=== PATIENT | male | born 1950 | race Caucasian/White ===

== ENCOUNTER 2016-10-04 10:39 | Inpatient (IN) | payer MEDICARE, MEDICAID ==
[~2016-10-04] VITALS: Ht 175.3 cm; Wt 70.2 kg
[~2016-10-04 10:39] MED LIST: ADVAIR DIS1 PUFF/DO1 IH; AFRIN-DPS15 ML NS; ASA CHILDREN'S81 MG PO; ATIVAN-DPS0.5 MG PO; ATROVENT HFA12.9 GM IH; BENADRYL-DPS25 MG PO; CARVEDILOL25 MG PO; CLARITIN DPS10 MG PO; COREG DPS12.5 MG PO; COREG DPS3.125 MG PO; DELTASONE DPS10 MG PO; DULERA 200/58.8 GM IH; DUONEB DPS3 ML IH; FENOFIBRATE48 MG PO; GLUCAGON1 MG/ML IM; GLUCAGON1 MG/ML SQ; GLUTOSE 1537.5 GM PO; HUMALOG100 UNIT/1 SQ; HYDROCODONE 5MG/5 MG PO; IMDUR DPS30 MG PO; KAYEXALATE7.5 GM/30 PO; KEFLEX-DPS500 MG PO; KLONOPIN DPS0.5 MG PO; KLONOPIN DPS1 MG PO; LASIX DPS40 MG PO; MAALOX DPS30 ML PO; METAMUCIL SF P3.4 GM PO; MINOCIN DPS100 MG PO; MS CONTIN DPS15 MG PO; MULTIPLE VITAM1 EACH PO; NITROSTAT0.4 MG SL; NORCO 5-325 TA1 EACH PO; NOVOLIN-N,100 UNITS/ SQ; NOVOLOG100 UNIT/2 SQ; OXY IR DPS5 MG PO; PEPCID40 MG PO; PERIDEX15 ML PO; PLAVIX75 MG PO; PRO-AMATINE2.5 MG PO; PROAIR HFA8.5 GM IH; PROTONIX40 MG PO; RENAGEL800 MG PO; RENVELA800 MG PO; REQUIP0.25 MG PO; SALINE NASAL SP88 ML NS; SENOKOT DPS8.6 MG PO; SENOKOT S1 TAB PO; SINEMET 25-1001 EACH PO; SINEMET 25/1001 TAB PO; SINEMET CR 25-11 TAB PO; SPIRIVA18 MCG IH; SURFAK DPS240 MG PO; TEFLARO600 MG IV; THERA1 EACH PO; THERAPEUTIC MUL1 TAB PO; TYLENOL DPS325 MG PO; TYLENOL-DPS650 MG PR; XYLOCAINE 1% SQ; ZOFRAN4 MG PO; ZOLOFT DPS100 MG PO
--- NOTE | 2016-10-07 18:31 | CO ---
ADMIT: 10/04/2016 RM/LOC: 521 [facility] MR#: [id number] [facility]#: [id number] 2620 [facility] [address] [place] [id number] [place] [address] Consultation SEX: M AGE: 65 : 1950 DATE OF CONSULTATION: 10/05/2016 ATTENDING PHYSICIAN: David Gonsalez CONSULTING PHYSICIAN: Adele Shirley MD REASON FOR CONSULTATION: Rash on legs. HISTORY OF PRESENT ILLNESS: Mr. Villagomez is a very pleasant 65-year-old white male with very complicated medical history including cirrhosis; end-stage renal disease, presently on hemodialysis; history of treated hepatitis C; history of a lymphoproliferative disorder and a failed renal transplant, who stated that he started noticing rash on his legs on Tuesday. His legs were also very tender. He denies any trauma to the legs and has not been applying anything to his legs. Over the next several days, he said the rash progressed and at this point, he does stated it is painful. He denies any pruritus associated with it. PAST MEDICAL HISTORY: See above. Also includes; 1. Dyslipidemia. 2. Coronary artery disease. 3. History of myocardial infarction. 4. History of chronic pain. 5. History of gastroesophageal reflux disease. 6. Restless legs syndrome. 7. History of COPD. 8. Diabetes mellitus. SOCIAL HISTORY: The patient lives with his and does hemodialysis daily. He does have a history of tobacco abuse, but quit many years ago according to him. FAMILY HISTORY: No family history of any skin diseases or renal diseases. MEDICATIONS: 1. Vancomycin. 2. Spiriva. 3. NovoLog sliding scale. 4. Carbidopa/levodopa. 5. Clonazepam p.r.n. 6. Senna. 7. Sertraline. 8. Ropinirole. 9. Morphine sulfate p.r.n. at bedtime. 10.Claritin 10 mg. 11.Protonix. 12.Deltasone 10 mg. 13.Zofran p.r.n. 14.Lortab p.r.n. ADMIT: 10/04/2016 RM/LOC: 521 [facility] MR#: [id number] [address] [address] [place] [address] Consultation SEX: M AGE: 65 : 1950 ALLERGIES: INCLUDE PHENOTHIAZINE, PROCHLORPERAZINE, CODEINE, LASIX, AND CIPROFLOXACIN. PHYSICAL EXAMINATION: GENERAL: Ursula is a pleasant thin white male, in no acute distress. EXTREMITIES: On the lower legs from about the mid thigh distally, there is pretty significant erythema and violaceous patches that are non-blanchable, but slightly blanchable. There is reticular pattern. The patient does report some tenderness on palpation. There is no eruption on the soles of the feet nor eruption is noted on the rest of the body. There is no breakdown of the epidermis at this time. No excoriations were noted. LABORATORY DATA: White blood cell count 4.3, platelet count 105, calcium 8.5, and creatinine 2.5. Arterial Doppler did show an atherosclerotic disease and venous Doppler was negative for a deep venous thrombosis. ASSESSMENT: I am not sure exactly what is causing Mr. Villagomez's lower extremity bilateral eruption. I think diagnoses to consider include a cellulitis versus an acute dermatitis with a lot of extravasation of red blood cells accounting for the non-blanchable component versus possibly early calciphylaxis or vasculitis. PLAN: 1. I discussed this with the patient, recommended a biopsy to hopefully help figure out what is causing this eruption. The patient agreed. Risks including bleeding, infection, allergy to the anesthetic, pain, and also non-healing ulcer in the lower leg were discussed with the patient. After both verbal and written consent were obtained, his area on the right thigh was cleaned with alcohol and 1 mL of 1% lidocaine with epinephrine was used to achieve local anesthesia. A 5 mm tubular blade was then used to remove a small piece of tissue and 5-0 nylon interrupted sutures were used to reapproximate the skin edges. Bandage was placed and wound care orders were given. Hopefully, the biopsy result will be available tomorrow or possibly on . 2. I think in the meantime, I am going to recommend triamcinolone 0.1% cream to be applied to the rash for the next week. If you have any questions, please do not hesitate to call. I appreciate you allowing me to help in the care of this patient. Adele Shirley MD/ trent JOB #: [id number] CC: David Gonsalez, Attending Physician David Gonsalez, Family Physician
--- NOTE | 2016-10-11 07:47 | HP ---
ADMIT: 10/04/2016 RM/LOC: 521 [facility] MR#: [id number] 2620 [facility] [address] [phone] [place] [address] History and Physical SEX: M AGE: 65 : 1950 REASON FOR HOSPITALIZATION: Cellulitis, vasculitic dermatitis. HISTORY OF PRESENT ILLNESS: This is a 65-year-old male patient, who last Zeus noticed some small petechial areas on his thighs. Over the ensuing 24 hours, this coalesced into a very deep dark purple and erythematous discoloration with pain and discomfort. This extended from the mid thigh down into the mid medial calf region. He presented to the emergency room and is now admitted for further evaluation and care. PAST MEDICAL HISTORY: The patient does have a significant history of end- stage renal disease, on hemodialysis with history of failed renal transplant. He also has a history of hepatitis C and lymphoproliferative disorder. This being said, these issues, I think, play a role in his current possible vasculitic dermatitis and/or the possibility of a mixed cryoglobulinemia syndrome. He also has a medical history of anxiety, chronic pain, reflux, restless legs syndrome, COPD, and recent hospitalization with pneumonia. He is a diabetic, has history of chronic liver disease and ascites. He has been treated for hep C with both ribavirin and then followup clearing therapy was performed with [facility] through the [facility]. He also has a history of dyslipidemia, coronary artery disease, [place], and PCI. SOCIAL HISTORY: He has been living with his at a local [facility], receives outpatient hemodialysis. He does not currently smoke or use alcohol. FAMILY HISTORY: Not contribute. MEDICATIONS: His meds are multiple, but I see nothing in the recent past has been added which would cause an allergic medication vasculitis. He has been started on Merrem and vancomycin since his admission. REVIEW OF SYSTEMS: The remainder of his review of systems is negative. He denies any current chest pain, shortness of breath, nausea, and vomiting. He does have the discomfort and pain in the areas of the rash, bilateral inner ADMIT: 10/04/2016 RM/LOC: 521 [facility] MR#: [id number] [address] [address] [place] [address] History and Physical SEX: M AGE: 65 : 1950 thighs. LABORATORY DATA: Reviewed. Arterial venous Doppler evaluation is negative. 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 PLAN: He is admitted. We will cover him with antibiotic and culture him. Ask Dr. Hall to see for hemodialysis management. I think we should consider a Dermatology consultation for biopsy, and in the meantime, I am going to check a viral load for hep C, acute phase react and eval with sedimentation rate, rheumatoid factor, serum protein electrophoresis, and serum cryoglobulin analysis. David Gonsalez DO/ modl JOB #: [id number] CC: David Gonsalez, Attending Physician David Gonsalez, Family Physician
--- NOTE | 2016-10-22 23:45 | ER ---
ADMIT: 10/04/2016 RM/LOC: ER [facility] MR#: [id number] [address] [address] [place] [address] Emergency Room Report SEX: M AGE: 65 : 1950 DATE: 10/04/2016 CHIEF COMPLAINT: Bilateral swollen, erythemic, red legs. HISTORY OF PRESENT ILLNESS: This is a 65-year-old who said these symptoms started developing on Tuesday. Today, the pain became so bad that [place] brought him into the emergency room. COURSE IN EMERGENCY ROOM: CMP is normal except for potassium at 3.6, creatinine 2.5, albumin 2.6, alkaline phos is 157, ALT is low at 10, GFR is 26. CRP is 3.88. PT/INR normal. CBC is normal except for white count of 4.3, hemoglobin 11.1, and platelets 105. Sedimentation rate is 37. Lactic acid is 1.4. Procalcitonin is pending. Blood cultures x2 have been drawn. Vancomycin with pharmacy to dose will be started down here in the emergency room. I did speak with Dr. Gonsalez regarding this patient at 1300 hours, he will admit the patient. CLINICAL IMPRESSION: Cellulitis to bilateral lower legs with petechiae. DISPOSITION: He is stable at admit. MANSI Krishnan / Eleuterio Mendoza MD / modl JOB #: [id number] CC: Eleuterio Mendoza MD, Attending Physician David Gonsalez DO, Family Physician
--- NOTE | 2016-11-24 08:23 | DS ---
ADMIT: 10/04/2016 RM/LOC: 521 [facility] MR#: [id number] [address] [address] [place]OME[place] [address] Discharge Summary SEX: M AGE: 65 : 1950 ADMISSION DATE: 10/04/2016 DISCHARGE DATE: 10/08/2016 REASON FOR HOSPITALIZATION: Vasculitic dermatitis, cellulitis. HISTORY OF PRESENT ILLNESS: A 65-year-old male patient, who presented with a fairly rapid onset small petechial areas in his thigh, which over the ensuing 24 hours, coalesced into a very deep dark purple erythematous discolored, painful rash over the medial thigh. He does have a significant medical history of hep C, lymphoproliferative disorder, end-stage renal disease, status post transplant on hemodialysis, mixed cryoglobulinemia, recent pneumonia, diabetes, chronic liver disease, ascites hep. C, status post Harvoni therapy. HOSPITAL COURSE: He was admitted to the hospital started on IV antibiotic therapy. He was given pain management. Dr. Hall was asked to consult and manage his end-stage renal disease, and ongoing dialysis orders. He was cultured and ultimately I asked Dermatology to see the patient to perform biopsy. We also performed serum protein electrophoresis, serum cryoglobulin evaluation, and quantitative viral hep C studies. On 10/05, biopsy was performed, he was noted to have a positive rheumatoid arthritis factor. The Dermatology recommendations were topical steroids and to arrange for a followup in their office after dismissal approximately 1 week. 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 His blood cultures were negative. 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 Gonzales on a routine basis. We did dismiss him on the with plans to return to see me in 2 weeks. Return to the Dermatology Clinic in 1 week and plan to keep his followup Hematology Oncology Clinic appointment. He was to return to outpatient hemodialysis with routine follow up Dr. Hall. MEDICATIONS: His medications are multiple and listed in the dismissal checklist. For specifics of medication and dosing, please refer to that list. David Gonsalez DO/ trent JOB #: [id number] CC: Dvaid Gonsalez DO, Attending Physician David Gonsalez DO, Family Physician
[2017-01-27] MEDS ORDERED: DELTASONE DPS10 MG PO (06:31)
[2017-01-27] MEDS ORDERED: CLARITIN DPS10 MG PO (06:31)
[2017-01-27] MEDS ORDERED: METAMUCIL SF P3.4 GM PO (06:32)
[2017-01-27] MEDS ORDERED: KLONOPIN DPS0.5 MG PO ×2 (06:32)
[2017-01-27] MEDS ORDERED: MIRALAX PACKET17 GM PO (06:32)
[2017-01-27] MEDS ORDERED: MS CONTIN DPS15 MG PO ×2 (06:33)
[2017-01-27] MEDS ORDERED: PROTONIX40 MG PO (06:33)
[2017-01-27] MEDS ORDERED: PRO-AMATINE2.5 MG PO (06:33)
[2017-01-27] MEDS ORDERED: SENOKOT DPS8.6 MG PO (06:34)
[2017-01-27] MEDS ORDERED: SINEMET 25-1001 EACH PO (06:34)
[2017-01-27] MEDS ORDERED: REQUIP DPS0.5 MG PO (06:34)
[2017-01-27] MEDS ORDERED: DUONEB DPS3 ML IH (06:35)
[2017-01-27] MEDS ORDERED: NORMAL SALINE FL5 ML IV (06:35)
[2017-01-27] MEDS ORDERED: THERAPEUTIC MUL1 TAB PO (06:35)
[2017-01-27] MEDS ORDERED: SINEMET 25/1001 TAB PO (06:35)
[2017-01-27] MEDS ORDERED: COLACE-DPS100 MG PO (06:36)
[2017-01-27] MEDS ORDERED: HYDROCODON-ACE1 EAC4 PO (06:36)
[2017-01-27] MEDS ORDERED: ZOSYN 3.3753.375 GM IV (06:36)
[2017-01-27] MEDS ORDERED: TYLENOL DPS325 MG PO (06:37)
[2017-01-27] MEDS ORDERED: OCEAN NASAL MIS45 ML NS (06:37)
[2017-01-27] MEDS ORDERED: ZOFRAN4 MG PO (06:37)
[2017-05-03] MEDS ORDERED: BREO ELLIP1 PUFF/DOS IH (11:52)
[2017-05-03] MEDS ORDERED: NIZORAL DPS30 GM TP (11:53)
[2017-05-03] MEDS ORDERED: VIBRAMYCIN-DPS100 M2 PO (11:53)
[2017-05-03] MEDS ORDERED: ATIVAN-DPS0.5 MG PO (11:54)
[2017-05-03] MEDS ORDERED: NITROSTAT0.4 MG SL (11:54)
[2017-05-03] MEDS ORDERED: SERTRALINE HCL50 MG PO (11:56)
[2017-05-03] MEDS ORDERED: KLONOPIN DPS0.5 MG PO (11:57)
[2017-05-03] MEDS ORDERED: RENAGEL800 MG PO ×2 (11:57→13:21)
[2017-05-03] MEDS ORDERED: GLUTOSE 1537.5 GM PO (11:57)
[2017-05-03] MEDS ORDERED: GLUCAGON HCL1 MG IM (11:58)
[2017-05-03] MEDS ORDERED: EUCERIN CREME57 GM TP (13:14)
[2017-05-03] MEDS ORDERED: MEGACE DPS800 MG/20 PO (13:19)
[2017-05-03] MEDS ORDERED: MUCINEX600 MG PO (13:20)
[2017-05-03] MEDS ORDERED: ZOLOFT50 MG PO (13:22)
[2017-05-03] MEDS ORDERED: DULERA 100/58.8 GM IH (13:23)
[2017-05-03] MEDS ORDERED: NOVOLIN R,100 UNITS/ SQ (13:24)
[2017-05-03] MEDS ORDERED: FLU VACCINE IM (13:25)
[2017-05-14] MEDS ORDERED: TYLENOL DPS325 MG PO (18:19)
[2017-05-14] MEDS ORDERED: COLACE-DPS100 MG PO (18:20)
[2017-05-14] MEDS ORDERED: NORCO 5-325 TA1 EACH PO (18:20)
[2017-05-14] MEDS ORDERED: POLYETHYLENE GL17 GM PO (18:20)
[2017-05-14] MEDS ORDERED: OCEAN NASAL MIS45 ML NS (18:20)
[2017-05-14] MEDS ORDERED: ZOFRAN4 MG PO (18:21)
[2017-05-14] MEDS ORDERED: NITROSTAT0.4 MG SL (18:21)
[2017-05-14] MEDS ORDERED: MS CONTIN DPS15 MG PO ×2 (18:21→18:24)
[2017-05-14] MEDS ORDERED: ATIVAN-DPS0.5 MG PO (18:21)
[2017-05-14] MEDS ORDERED: METAMUCIL SF P3.4 GM PO (18:22)
[2017-05-14] MEDS ORDERED: KLONOPIN DPS0.5 MG PO ×3 (18:22→18:24)
[2017-05-14] MEDS ORDERED: THERA1 EACH PO (18:22)
[2017-05-14] MEDS ORDERED: PROTONIX40 MG PO (18:22)
[2017-05-14] MEDS ORDERED: CLARITIN DPS10 MG PO (18:22)
[2017-05-14] MEDS ORDERED: REQUIP DPS0.5 MG PO (18:23)
[2017-05-14] MEDS ORDERED: SENOKOT DPS8.6 MG PO (18:23)
[2017-05-14] MEDS ORDERED: ZOLOFT50 MG PO (18:23)
[2017-05-14] MEDS ORDERED: CARBIDOPA-LEVO1 EAC6 PO ×2 (18:23→18:24)
[2017-05-14] MEDS ORDERED: EUCERIN CREME57 GM TP (18:25)
[2017-05-14] MEDS ORDERED: RENVELA0.8 GM PO ×2 (18:25)
[2017-05-14] MEDS ORDERED: BREO ELLIP1 PUFF/DOS IH (18:25)
[2017-05-14] MEDS ORDERED: NIZORAL DPS30 GM TP (18:26)
[2017-05-14] MEDS ORDERED: DUONEB DPS3 ML IH (18:26)
== END 2016-10-08 15:24 | DRG 606 ==
LOC: ER 10:39 → 5MS 13:20
PROVIDERS: ADMIT Internal Medicine
PROC: 0HBHXZX Excision of Right Upper Leg Skin, External Approach, Diagnostic (ICD-10-PCS; principal; 2016-10-05)
PROC: 5A1D60Z (ICD-10-PCS; 2016-10-05)
DX: L30.8 Other specified dermatitis (principal); N18.6 End stage renal disease; I13.2 Hypertensive heart and chronic kidney disease with heart failure and with stage 5 chronic kidney disease, or end stage renal disease; D47.Z1 Post-transplant lymphoproliferative disorder (PTLD); T86.11 Kidney transplant rejection; R18.8 Other ascites; D63.1 Anemia in chronic kidney disease; Z99.2 Dependence on renal dialysis; E11.22 Type 2 diabetes mellitus with diabetic chronic kidney disease; F41.9 Anxiety disorder, unspecified; K21.9 Gastro-esophageal reflux disease without esophagitis; G25.81 Restless legs syndrome; G89.29 Other chronic pain; J44.9 Chronic obstructive pulmonary disease, unspecified; E78.5 Hyperlipidemia, unspecified; I25.10 Atherosclerotic heart disease of native coronary artery without angina pectoris; I25.2 Old myocardial infarction; Z98.61 Coronary angioplasty status; Z86.19 Personal history of other infectious and parasitic diseases; Z87.891 Personal history of nicotine dependence; Z79.4 Long term (current) use of insulin

== ENCOUNTER 2016-10-22 15:50 | Day surgery (SDC) | payer MEDICARE, MEDICAID ==
[~2016-10-22] VITALS: Ht 175.3 cm; Wt 72.0 kg
[2017-01-27] MEDS ORDERED: CLARITIN DPS10 MG PO (06:31)
[2017-01-27] MEDS ORDERED: DELTASONE DPS10 MG PO (06:31)
[2017-01-27] MEDS ORDERED: MIRALAX PACKET17 GM PO (06:32)
[2017-01-27] MEDS ORDERED: METAMUCIL SF P3.4 GM PO (06:32)
[2017-01-27] MEDS ORDERED: KLONOPIN DPS0.5 MG PO ×2 (06:32)
[2017-01-27] MEDS ORDERED: PROTONIX40 MG PO (06:33)
[2017-01-27] MEDS ORDERED: PRO-AMATINE2.5 MG PO (06:33)
[2017-01-27] MEDS ORDERED: MS CONTIN DPS15 MG PO ×2 (06:33)
[2017-01-27] MEDS ORDERED: REQUIP DPS0.5 MG PO (06:34)
[2017-01-27] MEDS ORDERED: SENOKOT DPS8.6 MG PO (06:34)
[2017-01-27] MEDS ORDERED: SINEMET 25-1001 EACH PO (06:34)
[2017-01-27] MEDS ORDERED: SINEMET 25/1001 TAB PO (06:35)
[2017-01-27] MEDS ORDERED: THERAPEUTIC MUL1 TAB PO (06:35)
[2017-01-27] MEDS ORDERED: NORMAL SALINE FL5 ML IV (06:35)
[2017-01-27] MEDS ORDERED: DUONEB DPS3 ML IH (06:35)
[2017-01-27] MEDS ORDERED: HYDROCODON-ACE1 EAC4 PO (06:36)
[2017-01-27] MEDS ORDERED: COLACE-DPS100 MG PO (06:36)
[2017-01-27] MEDS ORDERED: ZOSYN 3.3753.375 GM IV (06:36)
[2017-01-27] MEDS ORDERED: OCEAN NASAL MIS45 ML NS (06:37)
[2017-01-27] MEDS ORDERED: ZOFRAN4 MG PO (06:37)
[2017-01-27] MEDS ORDERED: TYLENOL DPS325 MG PO (06:37)
[2017-05-03] MEDS ORDERED: BREO ELLIP1 PUFF/DOS IH (11:52)
[2017-05-03] MEDS ORDERED: VIBRAMYCIN-DPS100 M2 PO (11:53)
[2017-05-03] MEDS ORDERED: NIZORAL DPS30 GM TP (11:53)
[2017-05-03] MEDS ORDERED: ATIVAN-DPS0.5 MG PO (11:54)
[2017-05-03] MEDS ORDERED: NITROSTAT0.4 MG SL (11:54)
[2017-05-03] MEDS ORDERED: SERTRALINE HCL50 MG PO (11:56)
[2017-05-03] MEDS ORDERED: GLUTOSE 1537.5 GM PO (11:57)
[2017-05-03] MEDS ORDERED: KLONOPIN DPS0.5 MG PO (11:57)
[2017-05-03] MEDS ORDERED: RENAGEL800 MG PO ×2 (11:57→13:21)
[2017-05-03] MEDS ORDERED: GLUCAGON HCL1 MG IM (11:58)
[2017-05-03] MEDS ORDERED: EUCERIN CREME57 GM TP (13:14)
[2017-05-03] MEDS ORDERED: MEGACE DPS800 MG/20 PO (13:19)
[2017-05-03] MEDS ORDERED: MUCINEX600 MG PO (13:20)
[2017-05-03] MEDS ORDERED: ZOLOFT50 MG PO (13:22)
[2017-05-03] MEDS ORDERED: DULERA 100/58.8 GM IH (13:23)
[2017-05-03] MEDS ORDERED: NOVOLIN R,100 UNITS/ SQ (13:24)
[2017-05-03] MEDS ORDERED: FLU VACCINE IM (13:25)
[2017-05-14] MEDS ORDERED: TYLENOL DPS325 MG PO (18:19)
[2017-05-14] MEDS ORDERED: POLYETHYLENE GL17 GM PO (18:20)
[2017-05-14] MEDS ORDERED: NORCO 5-325 TA1 EACH PO (18:20)
[2017-05-14] MEDS ORDERED: COLACE-DPS100 MG PO (18:20)
[2017-05-14] MEDS ORDERED: OCEAN NASAL MIS45 ML NS (18:20)
[2017-05-14] MEDS ORDERED: MS CONTIN DPS15 MG PO ×2 (18:21→18:24)
[2017-05-14] MEDS ORDERED: ZOFRAN4 MG PO (18:21)
[2017-05-14] MEDS ORDERED: ATIVAN-DPS0.5 MG PO (18:21)
[2017-05-14] MEDS ORDERED: NITROSTAT0.4 MG SL (18:21)
[2017-05-14] MEDS ORDERED: METAMUCIL SF P3.4 GM PO (18:22)
[2017-05-14] MEDS ORDERED: THERA1 EACH PO (18:22)
[2017-05-14] MEDS ORDERED: PROTONIX40 MG PO (18:22)
[2017-05-14] MEDS ORDERED: CLARITIN DPS10 MG PO (18:22)
[2017-05-14] MEDS ORDERED: KLONOPIN DPS0.5 MG PO ×3 (18:22→18:24)
[2017-05-14] MEDS ORDERED: REQUIP DPS0.5 MG PO (18:23)
[2017-05-14] MEDS ORDERED: CARBIDOPA-LEVO1 EAC6 PO ×2 (18:23→18:24)
[2017-05-14] MEDS ORDERED: ZOLOFT50 MG PO (18:23)
[2017-05-14] MEDS ORDERED: SENOKOT DPS8.6 MG PO (18:23)
[2017-05-14] MEDS ORDERED: BREO ELLIP1 PUFF/DOS IH (18:25)
[2017-05-14] MEDS ORDERED: EUCERIN CREME57 GM TP (18:25)
[2017-05-14] MEDS ORDERED: RENVELA0.8 GM PO ×2 (18:25)
[2017-05-14] MEDS ORDERED: NIZORAL DPS30 GM TP (18:26)
[2017-05-14] MEDS ORDERED: DUONEB DPS3 ML IH (18:26)
== END 2016-10-22 18:08 | disposition home or self-care (01) ==
LOC: RAD.S 15:50
PROC: 05HN33Z Insertion of Infusion Device into Left Internal Jugular Vein, Percutaneous Approach (ICD-10-PCS; principal; 2016-10-22)
PROC: B544ZZA Ultrasonography of Left Jugular Veins, Guidance (ICD-10-PCS; principal; 2016-10-22)
PROC: B514YZA Fluoroscopy of Left Jugular Veins using Other Contrast, Guidance (ICD-10-PCS; principal; 2016-10-22)
DX: N18.6 End stage renal disease (principal); Z88.6 Allergy status to analgesic agent; Z88.8 Allergy status to other drugs, medicaments and biological substances; Z79.899 Other long term (current) drug therapy

== ENCOUNTER → 2016-11-05 | Outpatient (CLI) | payer MEDICARE, MEDICAID ==
[~2016-11-05] MED LIST changes: +BREO ELLIP1 PUFF/DOS IH; +CARBIDOPA-LEVO1 EAC6 PO; +COLACE-DPS100 MG PO; +DULERA 100/58.8 GM IH; +EUCERIN CREME57 GM TP; +FLU VACCINE IM; +GLUCAGON HCL1 MG IM; +HYDROCODON-ACE1 EAC4 PO; +MEGACE DPS800 MG/20 PO; +MIRALAX PACKET17 GM PO; +MUCINEX600 MG PO; +NIZORAL DPS30 GM TP; +NORMAL SALINE FL5 ML IV; +NOVOLIN R,100 UNITS/ SQ; +OCEAN NASAL MIS45 ML NS; +POLYETHYLENE GL17 GM PO; +RENVELA0.8 GM PO; +REQUIP DPS0.5 MG PO; +SERTRALINE HCL50 MG PO; +VIBRAMYCIN-DPS100 M2 PO; +ZOLOFT50 MG PO; +ZOSYN 3.3753.375 GM IV
== END | disposition home or self-care (01) ==
LOC: RAD.S 11-04 11:30
PROC: 05PY33Z Removal of Infusion Device from Upper Vein, Percutaneous Approach (ICD-10-PCS; principal; 2016-11-05)
DX: Z45.2 Encounter for adjustment and management of vascular access device (principal)

== ENCOUNTER 2016-12-07 21:35 | Emergency (ER) | payer MEDICARE, MEDICAID ==
[~2016-12-07 21:35] MED LIST changes: -BREO ELLIP1 PUFF/DOS IH; -CARBIDOPA-LEVO1 EAC6 PO; -COLACE-DPS100 MG PO; -DULERA 100/58.8 GM IH; -EUCERIN CREME57 GM TP; -FLU VACCINE IM; -GLUCAGON HCL1 MG IM; -HYDROCODON-ACE1 EAC4 PO; -MEGACE DPS800 MG/20 PO; -MIRALAX PACKET17 GM PO; -MUCINEX600 MG PO; -NIZORAL DPS30 GM TP; -NORMAL SALINE FL5 ML IV; -NOVOLIN R,100 UNITS/ SQ; -OCEAN NASAL MIS45 ML NS; -POLYETHYLENE GL17 GM PO; -RENVELA0.8 GM PO; -REQUIP DPS0.5 MG PO; -SERTRALINE HCL50 MG PO; -VIBRAMYCIN-DPS100 M2 PO; -ZOLOFT50 MG PO; -ZOSYN 3.3753.375 GM IV
--- NOTE | 2016-12-18 14:44 | ER ---
ADMIT: 12/07/2016 RM/LOC: ER [facility] MR#: [id number] [address] [address] [place] [address] Emergency Room Report SEX: M AGE: 66 : 1950 DATE: 12/07/2016 ADDENDUM: This patient comes to the ER because he is on dialysis and had bleeding sudden onset from his fistula this evening. The blood was pouring out of him. They medially put pressure and brought into the ER. On physical exam, he does have quite a bit of bleeding from the fistula we placed. Pressure dressing on it for a half an hour. The bleeding stopped. I did speak with Dr. Estevez, who is the surgeon on-call and also with Dr. Smith, the ER physician. Per Dr. Estevez, it was okay to leave the pressure dressing to be removed tomorrow. I was able to palpate a good pulse. He had good capillary refill with a dressing and I could feel the thrill from the fistula. Please see my T-sheet. DIAGNOSIS: Bleeding fistula. MANSI Hendricks / Rm Smith MD / trent JOB #: [id number] CC: Rm Smith MD, Attending Physician David Gonsalez DO, Family Physician
[2017-01-27] MEDS ORDERED: CLARITIN DPS10 MG PO (06:31)
[2017-01-27] MEDS ORDERED: DELTASONE DPS10 MG PO (06:31)
[2017-01-27] MEDS ORDERED: MIRALAX PACKET17 GM PO (06:32)
[2017-01-27] MEDS ORDERED: KLONOPIN DPS0.5 MG PO ×2 (06:32)
[2017-01-27] MEDS ORDERED: METAMUCIL SF P3.4 GM PO (06:32)
[2017-01-27] MEDS ORDERED: PROTONIX40 MG PO (06:33)
[2017-01-27] MEDS ORDERED: PRO-AMATINE2.5 MG PO (06:33)
[2017-01-27] MEDS ORDERED: MS CONTIN DPS15 MG PO ×2 (06:33)
[2017-01-27] MEDS ORDERED: SENOKOT DPS8.6 MG PO (06:34)
[2017-01-27] MEDS ORDERED: SINEMET 25-1001 EACH PO (06:34)
[2017-01-27] MEDS ORDERED: REQUIP DPS0.5 MG PO (06:34)
[2017-01-27] MEDS ORDERED: SINEMET 25/1001 TAB PO (06:35)
[2017-01-27] MEDS ORDERED: NORMAL SALINE FL5 ML IV (06:35)
[2017-01-27] MEDS ORDERED: DUONEB DPS3 ML IH (06:35)
[2017-01-27] MEDS ORDERED: THERAPEUTIC MUL1 TAB PO (06:35)
[2017-01-27] MEDS ORDERED: HYDROCODON-ACE1 EAC4 PO (06:36)
[2017-01-27] MEDS ORDERED: COLACE-DPS100 MG PO (06:36)
[2017-01-27] MEDS ORDERED: ZOSYN 3.3753.375 GM IV (06:36)
[2017-01-27] MEDS ORDERED: TYLENOL DPS325 MG PO (06:37)
[2017-01-27] MEDS ORDERED: OCEAN NASAL MIS45 ML NS (06:37)
[2017-01-27] MEDS ORDERED: ZOFRAN4 MG PO (06:37)
[2017-05-03] MEDS ORDERED: BREO ELLIP1 PUFF/DOS IH (11:52)
[2017-05-03] MEDS ORDERED: VIBRAMYCIN-DPS100 M2 PO (11:53)
[2017-05-03] MEDS ORDERED: NIZORAL DPS30 GM TP (11:53)
[2017-05-03] MEDS ORDERED: NITROSTAT0.4 MG SL (11:54)
[2017-05-03] MEDS ORDERED: ATIVAN-DPS0.5 MG PO (11:54)
[2017-05-03] MEDS ORDERED: SERTRALINE HCL50 MG PO (11:56)
[2017-05-03] MEDS ORDERED: RENAGEL800 MG PO ×2 (11:57→13:21)
[2017-05-03] MEDS ORDERED: KLONOPIN DPS0.5 MG PO (11:57)
[2017-05-03] MEDS ORDERED: GLUTOSE 1537.5 GM PO (11:57)
[2017-05-03] MEDS ORDERED: GLUCAGON HCL1 MG IM (11:58)
[2017-05-03] MEDS ORDERED: EUCERIN CREME57 GM TP (13:14)
[2017-05-03] MEDS ORDERED: MEGACE DPS800 MG/20 PO (13:19)
[2017-05-03] MEDS ORDERED: MUCINEX600 MG PO (13:20)
[2017-05-03] MEDS ORDERED: ZOLOFT50 MG PO (13:22)
[2017-05-03] MEDS ORDERED: DULERA 100/58.8 GM IH (13:23)
[2017-05-03] MEDS ORDERED: NOVOLIN R,100 UNITS/ SQ (13:24)
[2017-05-03] MEDS ORDERED: FLU VACCINE IM (13:25)
[2017-05-14] MEDS ORDERED: TYLENOL DPS325 MG PO (18:19)
[2017-05-14] MEDS ORDERED: OCEAN NASAL MIS45 ML NS (18:20)
[2017-05-14] MEDS ORDERED: COLACE-DPS100 MG PO (18:20)
[2017-05-14] MEDS ORDERED: NORCO 5-325 TA1 EACH PO (18:20)
[2017-05-14] MEDS ORDERED: POLYETHYLENE GL17 GM PO (18:20)
[2017-05-14] MEDS ORDERED: ATIVAN-DPS0.5 MG PO (18:21)
[2017-05-14] MEDS ORDERED: NITROSTAT0.4 MG SL (18:21)
[2017-05-14] MEDS ORDERED: ZOFRAN4 MG PO (18:21)
[2017-05-14] MEDS ORDERED: MS CONTIN DPS15 MG PO ×2 (18:21→18:24)
[2017-05-14] MEDS ORDERED: METAMUCIL SF P3.4 GM PO (18:22)
[2017-05-14] MEDS ORDERED: THERA1 EACH PO (18:22)
[2017-05-14] MEDS ORDERED: PROTONIX40 MG PO (18:22)
[2017-05-14] MEDS ORDERED: CLARITIN DPS10 MG PO (18:22)
[2017-05-14] MEDS ORDERED: KLONOPIN DPS0.5 MG PO ×3 (18:22→18:24)
[2017-05-14] MEDS ORDERED: REQUIP DPS0.5 MG PO (18:23)
[2017-05-14] MEDS ORDERED: CARBIDOPA-LEVO1 EAC6 PO ×2 (18:23→18:24)
[2017-05-14] MEDS ORDERED: SENOKOT DPS8.6 MG PO (18:23)
[2017-05-14] MEDS ORDERED: ZOLOFT50 MG PO (18:23)
[2017-05-14] MEDS ORDERED: BREO ELLIP1 PUFF/DOS IH (18:25)
[2017-05-14] MEDS ORDERED: RENVELA0.8 GM PO ×2 (18:25)
[2017-05-14] MEDS ORDERED: EUCERIN CREME57 GM TP (18:25)
[2017-05-14] MEDS ORDERED: NIZORAL DPS30 GM TP (18:26)
[2017-05-14] MEDS ORDERED: DUONEB DPS3 ML IH (18:26)
== END 2016-12-07 22:50 ==
LOC: ER 21:35
DX: T82.838A Hemorrhage due to vascular prosthetic devices, implants and grafts, initial encounter (principal); E11.22 Type 2 diabetes mellitus with diabetic chronic kidney disease; I12.0 Hypertensive chronic kidney disease with stage 5 chronic kidney disease or end stage renal disease; N18.6 End stage renal disease; Z86.19 Personal history of other infectious and parasitic diseases; Z79.899 Other long term (current) drug therapy

== ENCOUNTER 2016-12-09 09:31 | Day surgery (SDC) | payer MEDICARE, MEDICAID ==
[~2016-12-09] VITALS: Ht 175.3 cm; Wt 69.1 kg
[2017-01-27] MEDS ORDERED: CLARITIN DPS10 MG PO (06:31)
[2017-01-27] MEDS ORDERED: DELTASONE DPS10 MG PO (06:31)
[2017-01-27] MEDS ORDERED: KLONOPIN DPS0.5 MG PO ×2 (06:32)
[2017-01-27] MEDS ORDERED: METAMUCIL SF P3.4 GM PO (06:32)
[2017-01-27] MEDS ORDERED: MIRALAX PACKET17 GM PO (06:32)
[2017-01-27] MEDS ORDERED: MS CONTIN DPS15 MG PO ×2 (06:33)
[2017-01-27] MEDS ORDERED: PRO-AMATINE2.5 MG PO (06:33)
[2017-01-27] MEDS ORDERED: PROTONIX40 MG PO (06:33)
[2017-01-27] MEDS ORDERED: SINEMET 25-1001 EACH PO (06:34)
[2017-01-27] MEDS ORDERED: REQUIP DPS0.5 MG PO (06:34)
[2017-01-27] MEDS ORDERED: SENOKOT DPS8.6 MG PO (06:34)
[2017-01-27] MEDS ORDERED: DUONEB DPS3 ML IH (06:35)
[2017-01-27] MEDS ORDERED: THERAPEUTIC MUL1 TAB PO (06:35)
[2017-01-27] MEDS ORDERED: SINEMET 25/1001 TAB PO (06:35)
[2017-01-27] MEDS ORDERED: NORMAL SALINE FL5 ML IV (06:35)
[2017-01-27] MEDS ORDERED: COLACE-DPS100 MG PO (06:36)
[2017-01-27] MEDS ORDERED: HYDROCODON-ACE1 EAC4 PO (06:36)
[2017-01-27] MEDS ORDERED: ZOSYN 3.3753.375 GM IV (06:36)
[2017-01-27] MEDS ORDERED: ZOFRAN4 MG PO (06:37)
[2017-01-27] MEDS ORDERED: OCEAN NASAL MIS45 ML NS (06:37)
[2017-01-27] MEDS ORDERED: TYLENOL DPS325 MG PO (06:37)
[2017-05-03] MEDS ORDERED: BREO ELLIP1 PUFF/DOS IH (11:52)
[2017-05-03] MEDS ORDERED: NIZORAL DPS30 GM TP (11:53)
[2017-05-03] MEDS ORDERED: VIBRAMYCIN-DPS100 M2 PO (11:53)
[2017-05-03] MEDS ORDERED: ATIVAN-DPS0.5 MG PO (11:54)
[2017-05-03] MEDS ORDERED: NITROSTAT0.4 MG SL (11:54)
[2017-05-03] MEDS ORDERED: SERTRALINE HCL50 MG PO (11:56)
[2017-05-03] MEDS ORDERED: RENAGEL800 MG PO ×2 (11:57→13:21)
[2017-05-03] MEDS ORDERED: KLONOPIN DPS0.5 MG PO (11:57)
[2017-05-03] MEDS ORDERED: GLUTOSE 1537.5 GM PO (11:57)
[2017-05-03] MEDS ORDERED: GLUCAGON HCL1 MG IM (11:58)
[2017-05-03] MEDS ORDERED: EUCERIN CREME57 GM TP (13:14)
[2017-05-03] MEDS ORDERED: MEGACE DPS800 MG/20 PO (13:19)
[2017-05-03] MEDS ORDERED: MUCINEX600 MG PO (13:20)
[2017-05-03] MEDS ORDERED: ZOLOFT50 MG PO (13:22)
[2017-05-03] MEDS ORDERED: DULERA 100/58.8 GM IH (13:23)
[2017-05-03] MEDS ORDERED: NOVOLIN R,100 UNITS/ SQ (13:24)
[2017-05-03] MEDS ORDERED: FLU VACCINE IM (13:25)
[2017-05-14] MEDS ORDERED: TYLENOL DPS325 MG PO (18:19)
[2017-05-14] MEDS ORDERED: NORCO 5-325 TA1 EACH PO (18:20)
[2017-05-14] MEDS ORDERED: POLYETHYLENE GL17 GM PO (18:20)
[2017-05-14] MEDS ORDERED: COLACE-DPS100 MG PO (18:20)
[2017-05-14] MEDS ORDERED: OCEAN NASAL MIS45 ML NS (18:20)
[2017-05-14] MEDS ORDERED: NITROSTAT0.4 MG SL (18:21)
[2017-05-14] MEDS ORDERED: ZOFRAN4 MG PO (18:21)
[2017-05-14] MEDS ORDERED: ATIVAN-DPS0.5 MG PO (18:21)
[2017-05-14] MEDS ORDERED: MS CONTIN DPS15 MG PO ×2 (18:21→18:24)
[2017-05-14] MEDS ORDERED: METAMUCIL SF P3.4 GM PO (18:22)
[2017-05-14] MEDS ORDERED: PROTONIX40 MG PO (18:22)
[2017-05-14] MEDS ORDERED: KLONOPIN DPS0.5 MG PO ×3 (18:22→18:24)
[2017-05-14] MEDS ORDERED: CLARITIN DPS10 MG PO (18:22)
[2017-05-14] MEDS ORDERED: THERA1 EACH PO (18:22)
[2017-05-14] MEDS ORDERED: SENOKOT DPS8.6 MG PO (18:23)
[2017-05-14] MEDS ORDERED: CARBIDOPA-LEVO1 EAC6 PO ×2 (18:23→18:24)
[2017-05-14] MEDS ORDERED: REQUIP DPS0.5 MG PO (18:23)
[2017-05-14] MEDS ORDERED: ZOLOFT50 MG PO (18:23)
[2017-05-14] MEDS ORDERED: EUCERIN CREME57 GM TP (18:25)
[2017-05-14] MEDS ORDERED: BREO ELLIP1 PUFF/DOS IH (18:25)
[2017-05-14] MEDS ORDERED: RENVELA0.8 GM PO ×2 (18:25)
[2017-05-14] MEDS ORDERED: DUONEB DPS3 ML IH (18:26)
[2017-05-14] MEDS ORDERED: NIZORAL DPS30 GM TP (18:26)
== END 2016-12-09 14:25 | disposition home or self-care (01) ==
LOC: RAD.S 09:31 → EDSTATUS 11:00 → RAD.S 11:00
PROC: 05HD33Z Insertion of Infusion Device into Right Cephalic Vein, Percutaneous Approach (ICD-10-PCS; principal; 2016-12-09)
PROC: B51MYZA Fluoroscopy of Right Upper Extremity Veins using Other Contrast, Guidance (ICD-10-PCS; principal; 2016-12-09)
DX: T82.838A Hemorrhage due to vascular prosthetic devices, implants and grafts, initial encounter (principal); I87.1 Compression of vein; N18.6 End stage renal disease; Z79.899 Other long term (current) drug therapy; Z88.8 Allergy status to other drugs, medicaments and biological substances; Z88.6 Allergy status to analgesic agent; Z79.891 Long term (current) use of opiate analgesic

== ENCOUNTER 2016-12-11 12:22 | Inpatient (IN) | payer MEDICARE, MEDICAID ==
[~2016-12-11] VITALS: Ht 175.3 cm; Wt 63.5 kg
--- NOTE | ~2016-12-11 | ECH ---
Transthoracic Echocardiography Report (TTE) Demographics Patient Name URSULA VILLAGOMEZ Date of Study 12/20/2016 Patient Number [id number] Visit Number [id number] Date of 1950 Room Number 314 Accession Number [id number] Gender Male Age 66 year(s) Referring Sunshine Nicolas MD Paraffiner Janice Abreu [facility] Physician Physician Interpreting King William Garcia MD Terrazzo Layer Helper Physician Supervising Ordering Physician Ngozi William MD, MD/P Nurse Stress Diesel Engine Inspector Conclusions Summary Technically adequate exam. The estimated left ventricular ejection fraction is 30-35%. Global hypokinesis noted. The left ventricle is at upper limits of normal size . Diastolic assessment reveals Grade II pseudonormal diastolic function . Mildly dilated right ventricle with normal systolic function. The right atrium is severely dilated. Dilated IVC with poor inspiratory collapse consistent with elevated RA pressure. Mild mitral regurgitation by color Doppler. Moderate tricuspid regurgitation by color Doppler. There is moderate pulmonary hypertension. The pulmonary pressure (RVSP) is 49 mmHg. Mild pulmonic valve regurgitation by color Doppler. Procedure Type of Study TTE procedure:Echo Complete SF. Procedure Date Date: 12/20/2016 Start: 09:55 AM Technical Quality: Adequate visualization Indications:Coronary artery disease and Congestive heart failure. Additional Indications:history of positive blood cultures Appropriate Use Criteria: 9 Height: 69 inches Weight: 147 pounds BSA: 1.81 m Rhythm: Within normal limits HR: 91 bpm BP: 108/55 mmHg M-Mode/2D Measurements LV Diastolic Dimension: 5.85 cm LV Systolic Dimension: 5.22 cm LV Septum Diastolic: 0.94 cm LV PW Diastolic: 0.89 cm AO Root Dimension: 2.6 cm Cardiac Output: 5.05 l/min LA Dimension: 4.91 cm Cardiac Index: 2.79 l/min*m RV Diastolic Dimension: 4.73 cm LA volume index: 59 ml/m LVOT: 2.06 cm IVC Inspiration: 2.98 cm LVOT VTI: 16.66 cm RV Base: 5.6 cm LV Stroke volume: 55.5 ml RV Mid: 3.7 cm LV Stroke volume index: 30.66 ml/m RV Length: 7.9 cm TAPSE: 1.8 cm TDI-S': 13 cm/s Doppler Measurements AV Peak Velocity: 1.4 m/s MV Peak E-Wave: 1.06 m/s AV Peak Gradient: 7.84 mmHg MV Peak A-Wave: 0.86 m/s AV Mean Gradient: 4.92 mmHg MV E/A Ratio: 1.23 LVOT Peak Velocity: 1.06 m/s MV P1/2t: 37.7 msec AV Area (Continuity):2.51 cm MV Deceleration Time: 128.5 msec TR Velocity:2.93 m/s MV Area (PHT): 5.84 cm TR Gradient:34.42 mmHg PV Peak Velocity: 1.11 m/s Estimated RAP:15 mmHg PV Peak Gradient: 4.95 mmHg Estimated RVSP: 49 mmHg Estimated PASP: 49.42 mmHg RA Area: 32.36 cm Findings Left Ventricle The left ventricle is at upper limits of normal size . Diastolic assessment reveals Grade II pseudonormal diastolic function . Right Ventricle Mildly dilated right ventricle with normal systolic function. Left Atrium The left atrium is severely dilated by LA volume index measurement. The interatrial septum appears aneurysmal. There is no evidence of patent foramen ovale or atrial septal defect by color Doppler. Right Atrium The right atrium is severely dilated . Dilated IVC with poor inspiratory collapse consistent with elevated RA pressure. Mitral Valve Normal mitral valve structure and function. Mild mitral regurgitation by color Doppler. Aortic Valve Normal aortic valve structure and function. Tricuspid Valve Normal appearing tricuspid valve. Moderate tricuspid regurgitation by color Doppler. There is moderate pulmonary hypertension. The pulmonary pressure (RVSP) is 49 mmHg. Pulmonic Valve Normal pulmonic valve structure and function. Mild pulmonic valve regurgitation by color Doppler. Pericardial Effusion No evidence of pericardial effusion. Miscellaneous Visualized portions of the aortic root and ascending aorta appear normal in size. Pleural Effusion No evidence of pleural effusion. Contractility Score LV regional wall motion:(0-Non visualized 1-Normal 2-Hypokinesis 3-Akinesis 4-Dyskinesis 5-Aneurysm) Signature
--- NOTE | 2016-12-11 18:29 | ER ---
ADMIT: 12/11/2016 RM/LOC: [address] [facility] MR#: [id number] 2620 [facility] [address] [place], [place] [address] [place] [address] Emergency Room Report SEX: M AGE: 66 : 1950 DATE: 12/11/2016 TIME: 1222 hours. Please refer to my T-sheet for complete H and P. HISTORY OF PRESENT ILLNESS: Briefly, the patient is a 66-year-old, who was brought over from [place], 2 to 3 days, he just has not been feeling very well. He did have a temp of 100.9. He has multiple comorbidities including end-stage renal disease, dialysis, cardiac disease, diabetes. He has been having trouble with his fistula. He did not dialyze yesterday, and he has a pressure dressing on, it is not actively bleeding. He has no specific complaints. He vomited once. He just feels weak. PHYSICAL EXAMINATION: VITAL SIGNS: Blood pressure 123/59, pulse 88, respirations 16, temp 98.6, and saturating 83% on room air. He is 97% on 2 L, which he normally wears. HEENT: Grossly normal. LUNGS: Clear. HEART: Regular. ABDOMEN: Soft. EXTREMITIES: He has 2+ edema in his lower extremities. They are warm to the touch. His right upper extremity fistula has a good thrill. He has a pressure dressing on it. EMERGENCY DEPARTMENT COURSE: We did sepsis panel. Chest x-ray showed no acute findings. CBC was normal except hemoglobin 11, and platelets 119. Chemistries normal except sodium 131, CO2 of 20, BUN 53, and creatinine 5.5. CK was 97. CK-MB 4.7. Troponin 0.142. Lactate 2.6. EKG was sinus rhythm, rate 84. We did blood cultures x2. I started him on Zosyn and vanco. I talked to Dr. Graham, who will admit to the hospital. ASSESSMENT: 1. Weakness. 2. Fever. 3. AV fistula problems. 4. Lower extremity edema. PLAN: Admit to the hospital. Dexter Lepe MD/ trent JOB #: [id number] CC: Meño Graham MD, Attending Physician Meño Graham MD, Family Physician
--- NOTE | 2016-12-16 12:41 | CO ---
ADMIT: 12/11/2016 RM/LOC: 533 [facility] MR#: [id number] [address] [address] [place] [address] Consultation SEX: M AGE: 66 : 1950 DATE OF CONSULTATION: 12/12/2016 ATTENDING PHYSICIAN: Meño Graham CONSULTING PHYSICIAN: Leif Hall MD REASON FOR CONSULTATION: End-stage renal disease, on hemodialysis, AV fistula bleeding. HISTORY OF PRESENT ILLNESS: The patient is a 66-year-old gentleman, who has a history of end-stage renal disease, who is well known to me. He typically dialyzes on a Tuesday, Tuesday, Tuesday schedule. He has been having ongoing issues with the access over the last five days. He was noted to have bleeding from his access Tuesday night. He was sent to the ER and hemostasis was achieved and he was discharged from the ER. He had dialysis on Tuesday, but again on Tuesday morning, he was noted to have persistent bleeding from his access. This is after having had a fistulogram on where he had a stent placed to his distal cephalic vein to relieve outflow obstruction. He had a couple of trips to the ER and the Dialysis unit back and forth because he continued to bleed from his access. Eventually, plan was made to get him a dialysis catheter on Tuesday ie., tomorrow along with another look at his fistula to see if we can do anything for him. However, he was sent to the hospital yesterday because of weakness. He reports feeling sick yesterday morning. At the time of his encounter, he is awake. He feels okay. He denies any complaints. He does not have an appetite. Energy is poor. He feels he is somewhat wobbly. Denies any dyspnea or chest pain. He has had these abrasions on his arms that he has had previously. He reports he has had some nodular lesions that he picks giving himself abrasions. REVIEW OF SYSTEMS: A complete review of systems is negative in detail except as mentioned in history of present illness above. PAST MEDICAL HISTORY: 1. Hypertension. 2. Type 2 diabetes mellitus. 3. Hepatitis C, status post treatment with Harvoni. 4. Peripheral vascular disease, status post stent placement in lower extremities. 5. End-stage renal disease, secondary to cryoglobulin-induced MPGN. 6. Access right upper arm AV fistula. 7. donor kidney transplant, status post rejection. 8. Lymphoproliferative disease, status post transplant. 9. Dyslipidemia. 10.Depression. 11.GERD. 12.Coronary artery disease, status post NM. 13.Percutaneous coronary intervention. 14.Recurrent ascites. 15.Right upper arm AV fistula access stenosis. ADMIT: 12/11/2016 RM/LOC: 533 [facility] MR#: [id number] [address] [place] [phone] [place] [address] Consultation SEX: M AGE: 66 : 1950 ALLERGIES: COMPAZINE, CODEINE, AND CIPROFLOXACIN. FAMILY HISTORY: No family history of chronic kidney disease or renal replacement therapy. His is on dialysis. MEDICATIONS: Reviewed and addressed in the chart. SOCIAL HISTORY: He lives at [place]. No ongoing tobacco, alcohol, or recreational drug use. PHYSICAL EXAMINATION: VITAL SIGNS: Temperature 98.8 Fahrenheit, blood pressure 112/56, pulse 95. GENERAL: He is comfortable on the bed. His face looks puffy. HEENT: Head is nontraumatic and normocephalic. Extraocular movements are intact. Pale conjunctivae. Moist mucosa. CHEST: Clear to auscultation. CVS: Regular rhythm. S1 and S2 heard. No murmurs, rubs, or gallops. ABDOMEN: Soft, ascites is present. EXTREMITIES: 1+ edema. SKIN: He has erythema of his legs and multiple abrasions on his upper extremities. Access; AV fistula right upper arm with good thrill and bruit. He has a bandage around his AV fistula. His right arm is swollen. His outflow vein is pretty distended even up above his shoulder. NEUROLOGIC: Alert, awake, and oriented x3. He is able move all his extremities. MUSCULOSKELETAL: Major joints are normal limits. Range of motion within normal limits. PSYCHIATRIC: Affect and memory within normal limits. LABORATORY DATA: Reviewed. BMP with sodium 131, potassium 5.1, CO2 of 20, creatinine 5.9. Hemoglobin 12.2. Calcium 8.7, phosphorus 4.7, magnesium 1.8. Chest x-ray with bilateral lower lobe opacities. His angiogram was reviewed and findings are noted above in HPI. His blood cultures showed 1/2 sets gram- positive cocci. ASSESSMENT AND PLAN: 1. End-stage renal disease, on hemodialysis. 2. Gram-positive bacteremia. 3. Access outflow stenosis. There is no emergent indication for renal replacement therapy. His access for hemodialysis is an issue. As had been planned previously through the ADMIT: 12/11/2016 RM/LOC: 533 [facility] MR#: [id number] [address] [place] [phone] [place] [address] Consultation SEX: M AGE: 66 : 1950 emergency room, IR was planning to put in dialysis catheter for him. I think we should probably put a temporary dialysis catheter in the morning now considering his positive blood cultures. I will plan to repeat blood cultures today. He has already received vancomycin during this hospitalization. Depending on what IR finds, it is possible that we may end up needing to ligate his AV fistula. I will have Surgery have a look at him to. I did discuss his case with Dr. Ureña and our game plan would be to have him evaluated by Interventional Radiology plus Surgery for any procedures as noted above. Thank you for this consultation. Please do not hesitate to contact with any questions. Leif Hall MD/ trent JOB #: [id number] CC: Meño Graham, Attending Physician Meño Graham, Family Physician
--- NOTE | 2016-12-21 14:52 | CO ---
ADMIT: 12/11/2016 RM/LOC: 314 [facility] MR#: [id number] [address] [address] [place] [address] Consultation SEX: M AGE: 66 : 1950 DATE OF CONSULTATION: 12/20/2016 ATTENDING PHYSICIAN: eMño Graham CONSULTING PHYSICIAN: Elisha Boyd APRN TIME IN: 1345 hours. TIME OUT: 1435 hours. REASON FOR CONSULTATION: Supportive care consultation was requested by Dr. Gonsalez for discussion of goals for care. HISTORY OF PRESENT ILLNESS: Mr. Patricia is a delightful 66-year-old, male with the unfortunate history of end-stage renal disease, on hemodialysis, hepatitis C, lymphoproliferative disorder, severe peripheral vascular disease as well as a history of type 2 diabetes mellitus. He lives at [facility] and normally receives dialysis on a Tuesday, Tuesday, and Tuesday schedule. He had been having some ongoing issues with his access over the days prior to admission. He had some bleeding issues and also underwent a fistulogram where a stent was placed to relieve outflow obstruction. He then presented to the hospital on December 11 due to weakness. He did have blood cultures done that have grown Staph aureus. He underwent a fistula revision on December 13 with a fistula oversew. Currently, he is being dialyzed through a temporary catheter in the right IJ. There is need to obtain more temporary catheter placement for him. Yesterday, he had tenderness over the left lower quadrant. He has also been running fevers. A CT of the abdomen was done today that showed ascites and hepatosplenomegaly, which was seen previously; however, he had overall no suspicious changes in the abdomen or pelvis. He did have bilateral pleural effusions on that CT scan. Cardiology was asked to see him today and an echo was done, and his EF is noted to be 30% to 35%. He does have global hypokinesis and grade 2 diastolic dysfunction. The right atrium was severely dilated. He does have moderate pulmonary hypertension noted on the echocardiogram as well. Overall due to his complexity, supportive care consultation was requested to discuss goals for care. In terms of advanced directives, the patient did complete a healthcare power- of-county attorney document last year when we were asked to see the patient in consultation. He has designated Kathy Clifton whose phone is [phone] and [phone] as his primary healthcare [id number] and Tyler Patricia whose phone [phone] as his successor [id number]. The patient's is also living; however, she is in poor health; therefore, she is not listed as the primary healthcare [id number]. The patient does state that she can receive information. He does not have a living will or POLST form on file. He is a full code. Symptomatically, the patient overall is weak and debilitated. He denies any major complaints at the time of my assessment. ADMIT: 12/11/2016 RM/LOC: 314 [facility] MR#: [id number] [address] [place] [id number] [place] [address] Consultation SEX: M AGE: 66 : 1950 PAST MEDICAL HISTORY: Hypertension, type 2 diabetes mellitus, hep C, peripheral vascular disease, end-stage renal disease, donor kidney transplant status post rejection, lymphoproliferative disease status post transplant, dyslipidemia, depression, GERD, coronary artery disease, status post HI, percutaneous coronary intervention, recurrent ascites, and fistula. ALLERGIES: THE PATIENT IS ALLERGIC TO COMPAZINE, CODEINE, AND CIPRO. CURRENT MEDICATIONS: Please see the patient's MAR for specific routes and dosages. His current medications are as follows: 1. Merrem. 2. NovoLog. 3. Requip. 4. Claritin. 5. Sinemet. 6. Glutose. 7. Glucagon. 8. D50. 9. Multivitamin. 10.Prednisone. 11.Senokot. 12.Metamucil. 13.Protonix. 14.ProAmatine. 15.Kayexalate. 16.Dulera. 17.DuoNeb. 18.Spiriva. 19.Zofran. 20.Redford. 21.Sinemet. 22.Hytone. 23.Maalox. 24.Tylenol. 25.Nitrostat. 26.Heparin. SOCIAL HISTORY: The patient is . He lives at [place]. He does not currently use tobacco, alcohol, or illicit drugs. FAMILY HISTORY: Reviewed and noncontributory. FUNCTIONAL REVIEW: Prior to his hospital stay, he was living at [facility]. He spends most of his time sitting. He did need some assistance with ADLs. His palliative performance scale prior to admission was around 50% to 60%. Currently, he is mostly in bed. He is requiring mainly considerable assistance with ADLs. He is tired. Intake is reduced. His current palliative performance scale is 40% to 50%. ADMIT: 12/11/2016 RM/LOC: 314 [facility] MR#: [id number] [address] [address] [place] [address] Consultation SEX: M AGE: 66 : 1950 REVIEW OF SYSTEMS: A 10-point review of systems was completed and other than those pertinent positives and negatives mentioned in the HPI, it is negative. PHYSICAL EXAMINATION: GENERAL: The patient is examined in the bed. He is in no acute distress. VITAL SIGNS: Temperature 96.9, pulse 88, respirations 16, blood pressure 146/63, and oxygen 95% on 4 L per nasal cannula. HEENT: Head is normocephalic. Pupils are 3 mm bilaterally and brisk. Oral mucosa pink and moist with poor dentition. NECK: Supple. RESPIRATORY: Respirations are equal and nonlabored at rest. LUNGS: Slightly course over the bases. CARDIOVASCULAR: Rate and rhythm regular without murmurs, rubs, or gallops, 2+ bilateral lower extremity edema noted. GASTROINTESTINAL: Distended. Nontender. Bowel sounds are positive. MUSCULOSKELETAL: Generalized weakness. No obvious joint deformities. INTEGUMENTARY: Skin turgor is fair. His legs are very dusky in appearance. NEUROLOGIC: Alert and oriented x3. He will follow commands. PSYCHIATRIC: Calm and cooperative. No agitation or delirium noted. DIAGNOSTIC DATA: Sodium 133, potassium 4.4, BUN 29, creatinine 4.9, total protein 6.5, albumin 2.5. WBCs 8.1, hemoglobin 9.9, hematocrit 30.6, and platelets 79. IMPRESSION: 1. Physical debility. 2. Fatigue. 3. Malaise. 4. Moderate protein-calorie malnutrition. 5. Anxiety. 6. Methicillin-resistant Staphylococcus aureus. 7. End-stage renal disease, on hemodialysis. 8. Diastolic heart failure. 9. Lymphoproliferative disorder. 10.Hepatitis C, status post Harvoni treatment. 11.Peripheral vascular disease. 12.Diabetes mellitus type 2. 13.Pneumonia. 14.Fever. 15.Sepsis. 16.Palliative care. 17.The patient is a full code. PLAN: 1. I was able to meet with the patient at the bedside. We reviewed his overall status and goals for the time ahead. He understands that he has many chronic health issues, but states that he is hopeful for ongoing ADMIT: 12/11/2016 RM/LOC: 314 [facility] MR#: [id number] [address] [address] [place] [address] Consultation SEX: M AGE: 66 : 1950 improvement with the goal of getting back to the nursing facility where he hopes to do some rehab. We discussed his dialysis needs, and he is hopeful to continue ongoing dialysis therapy. At this point, he overall desires ongoing aggressive interventions. He states that he is "not ready to ." We did briefly review the hospice philosophy for when the time comes that he decides that he wants to focus more on comfort rather than aggressive interventions. At this point, he wants to stay alive as long as possible for his . As mentioned, she is in poor health as well. The patient overall is very appreciative of supportive care consultation, agrees to ongoing discussions in the time ahead pending his status. 2. We did review code status at length including the burden versus benefit of a full code versus do not resuscitate/do not intubate status. The patient understands that resuscitative interventions would be very difficult on him; however, he directs to be a full code status. He does state that he would not want to be on a machine long-term if it were to come to that. 3. In terms of medical decision making, he has completed a healthcare power- of-county attorney form. In regard other advanced directives, I will potentially assist him with completion of a POLST form pending his status in the days ahead and his willingness. We would like to thank Dr. Gonsalez for the invitation to participate in this patient's care. Total consultation time was 50 minutes from 1345 hours to 1435 hours with 30 minutes from 1350 hours to 1420 hours spent [id number] with the patient discussing goals for care and providing counseling and support. We will continue to follow along. Elisha Boyd APRN/ trent JOB #: [id number] CC: Meño Graham, Attending Physician Meño Graham, Family Physician
--- NOTE | 2016-12-31 11:50 | CO ---
ADMIT: 12/11/2016 RM/LOC: 314 [facility] MR#: [id number] [address] [address] [place] [address] Consultation SEX: M AGE: 66 : 1950 DATE OF CONSULTATION: 12/20/2016 ATTENDING PHYSICIAN: Meño Graham CONSULTING PHYSICIAN: Liberty Melvin MD REASON FOR CONSULTATION: Sepsis. Jennifer Moe RN, scribing for Dr. Stewart Melvin. HISTORY OF PRESENT ILLNESS: Mr. Patricia is a very pleasant 66-year-old gentleman I have been asked to see in Cardiology consultation by Dr. Gonsalez. He is followed closely by [facility]. He was last seen in August of this year for his history of coronary artery disease. He has history of myocardial infarction in 2003, status post PCI at that time to LAD. Last heart catheterization was in February of 2012 showing widely patent stents in LAD and circ with nonobstructive disease in other areas. Last echocardiogram was in July of 2016 showing ejection fraction of 40% with severe left atrial enlargement. He had a stress test in March of last year that was consistent with infarct, inferior wall, which was unchanged from 2012. He also has history of peripheral vascular disease, status post SFA stenting, chronic diastolic heart failure, chronic kidney disease stage 5 on hemodialysis, diabetes, and liver ascites. Mr. Patricia presented to [facility] on the with AV fistula bleeding. There was some question about infection through that site. He had blood cultures drawn on admission that grew out MRSA. Repeat blood cultures were drawn yesterday that did not show any abnormalities. He does have chronic shortness of breath and chest x-ray that showed increased right lower lobe opacity and right pneumonia. He is anemic with a hemoglobin of 9.9, white count is normal, his vital signs have essentially been stable. He denies any chest pain, shortness of breath when sitting up, he does have some orthopnea though. He denies any significant peripheral edema, palpitations, or presyncope. PAST MEDICAL HISTORY: 1. Cardiac history as outlined above. 2. History of positive PPD. 3. Shock liver with ischemic hepatitis. 4. History of chronic anemia. 5. Anxiety. 6. Arthritis. 7. Asthma. 8. BPH. 9. COPD. 10.Chronic immunosuppression. 11.Depression. 12.Diverticulitis. 13.Diverticulosis. ADMIT: 12/11/2016 RM/LOC: 314 [facility] MR#: [id number] [address] [address] [place] [address] Consultation SEX: M AGE: 66 : 1950 14.End-stage renal disease, on hemodialysis. 15.External hemorrhoids. 16.Fibrosis stage II. 17.Gastritis. 18.Gastroparesis. 19.Gastroesophageal reflux disease. 20.GI bleeding. 21.Headache with migraines. 22.Hepatitis C. 23.Low-grade lymphoma. 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 25.Nephrolithiasis. 26.Peptic ulcer disease. 27.Chronic UTIs. 28.Prostatitis. 29.Pyelonephritis. 30.Renal colic. PAST SURGICAL HISTORY: 1. Fistula placed with EGD x2. 2. Bronchoscopy with BAL. 3. Cadaveric renal transplant. 4. Bronchoscopy with biopsy. 5. Kidney biopsy. 6. Liver biopsy. 7. Cholecystectomy. ALLERGIES: IODINE. MEDICATIONS: Current medications include: 1. Claritin 10 daily. 2. Deltasone 10 daily. 3. Metamucil daily. 4. ProAmatine 10 p.o. b.i.d. 5. Protonix 40 daily. 6. Requip 0.5 t.i.d. 7. Senokot 8.6 p.o. daily. 8. Sinemet 25/100, Tuesday, Tuesday, Tuesday daily and every night at bedtime. 9. Multivitamin daily. 10.Dulera two puffs inhalation b.i.d. 11.Spiriva 18 mcg inhalation daily. 12.NovoLog low-dose sliding scale before meals and bedtime. 13.Hytone cream topically to arms b.i.d. 14.Merrem 500 mg IV q. 24 hours. FAMILY HISTORY: Noncontributory. ADMIT: 12/11/2016 RM/LOC: 314 [facility] MR#: [id number] [address] [address] [place] [address] Consultation SEX: M AGE: 66 : 1950 SOCIAL HISTORY: Fito resides at home. No alcohol or drug use. He has former tobacco use. REVIEW OF SYSTEMS: GENERAL: Reports increased fatigue. Denies recent fever, chills, or sweats or weight changes. EYES: Has history of cataracts. Denies any current visual changes. He does wear corrective lenses. THROAT, MOUTH, AND EARS: Denies any sinus congestion, sore throat, or hearing issues. RESPIRATORY: History of COPD, history of emphysema, bronchitis. Denies any hemoptysis. GASTROINTESTINAL: History of gastroesophageal reflux disease. History of GI bleeding in the past. History of gallbladder disease, status post cholecystectomy. History of liver disease with hepatitis C. GENITOURINARY: Denies any troubles with urination. He is on end-stage renal disease, on hemodialysis. MUSCULOSKELETAL: History of gout and arthritis. ENDOCRINE: History of hypothyroidism, and positive for diabetes. HEMATOLOGY: Chronic anemia. Denies any current bleeding issues. NEUROLOGIC: History of headaches with migraine headaches. Denies stroke. PSYCHIATRIC: Depression and anxiety. PHYSICAL EXAMINATION: VITAL SIGNS: Blood pressure 108/55, heart rate 85, respirations 22, temperature is 98.8, oxygenation 96% on O2. SKIN: Cornish, warm and dry. EYES: Sclerae clear. No xanthelasmas. ENT: Oral mucosa is pink and moist. No jugular venous distention or carotid bruits. CHEST: Respirations are even and unlabored. Lungs are clear to auscultation. HEART: Regular rate and rhythm. Normal S1, S2. No murmurs, rubs or gallops. ABDOMEN: Soft and nontender. MUSCULOSKELETAL: Gait is normal. EXTREMITIES: Peripheral pulses palpable. No clubbing, cyanosis or edema. PSYCHIATRIC: Alert and oriented. Mood and affect are appropriate. DIAGNOSTIC DATA: Chest x-ray on 12/19 showed increased right lower lobe opacity and right pneumonia. Sodium 133, potassium 4.4, BUN 29, creatinine 4.9, glucose 71. White blood cell count 8.1, hemoglobin 9.9, hematocrit 30.6, platelets 79. ASSESSMENT: 1. Coronary artery disease. 2. Methicillin-resistant Staphylococcus aureus. 3. End-stage renal disease, on hemodialysis. 4. Chronic diastolic heart failure. 5. Diabetes mellitus. ADMIT: 12/11/2016 RM/LOC: 314 [facility] MR#: [id number] [facility] [address] [address] [place] [address] Consultation SEX: M AGE: 66 : 1950 PLAN: Clinically, there are no signs or symptoms of endocarditis. Repeat cultures since December 12 have been negative. I would only recommend ERICK if there is suspected vegetation or consider if repeat cultures demonstrate further growth. Thank you for the consultation. "I have read and agree with the documentation that has been completed regarding this visit. By signing this record, I attest that the documentation was completed in my physical presence and is an accurate record of the encounter." Jennifer Moe RN / Liberty Melvin MD / trent JOB #: [id number] CC: Meño Graham, Attending Physician Meño Graham, Family Physician
[2017-01-27] MEDS ORDERED: CLARITIN DPS10 MG PO (06:31)
[2017-01-27] MEDS ORDERED: DELTASONE DPS10 MG PO (06:31)
[2017-01-27] MEDS ORDERED: KLONOPIN DPS0.5 MG PO ×2 (06:32)
[2017-01-27] MEDS ORDERED: METAMUCIL SF P3.4 GM PO (06:32)
[2017-01-27] MEDS ORDERED: MIRALAX PACKET17 GM PO (06:32)
[2017-01-27] MEDS ORDERED: PRO-AMATINE2.5 MG PO (06:33)
[2017-01-27] MEDS ORDERED: PROTONIX40 MG PO (06:33)
[2017-01-27] MEDS ORDERED: MS CONTIN DPS15 MG PO ×2 (06:33)
[2017-01-27] MEDS ORDERED: SINEMET 25-1001 EACH PO (06:34)
[2017-01-27] MEDS ORDERED: SENOKOT DPS8.6 MG PO (06:34)
[2017-01-27] MEDS ORDERED: REQUIP DPS0.5 MG PO (06:34)
[2017-01-27] MEDS ORDERED: DUONEB DPS3 ML IH (06:35)
[2017-01-27] MEDS ORDERED: NORMAL SALINE FL5 ML IV (06:35)
[2017-01-27] MEDS ORDERED: SINEMET 25/1001 TAB PO (06:35)
[2017-01-27] MEDS ORDERED: THERAPEUTIC MUL1 TAB PO (06:35)
[2017-01-27] MEDS ORDERED: COLACE-DPS100 MG PO (06:36)
[2017-01-27] MEDS ORDERED: HYDROCODON-ACE1 EAC4 PO (06:36)
[2017-01-27] MEDS ORDERED: ZOSYN 3.3753.375 GM IV (06:36)
[2017-01-27] MEDS ORDERED: ZOFRAN4 MG PO (06:37)
[2017-01-27] MEDS ORDERED: OCEAN NASAL MIS45 ML NS (06:37)
[2017-01-27] MEDS ORDERED: TYLENOL DPS325 MG PO (06:37)
--- NOTE | 2017-02-24 11:41 | OR ---
ADMIT: 12/11/2016 RM/LOC: 414 [facility] MR#: [id number] 2620 [facility] [address] [place], [place] [address] [place] [address] Operative/Delivery Room Report SEX: M AGE: 66 : 1950 SURGERY DATE: 12/14/2016 SURGEON: Meño Estevez MD PREPROCEDURE DIAGNOSIS: Bleeding right upper arm AV fistula. POSTPROCEDURE DIAGNOSIS: Bleeding right upper arm AV fistula. PROCEDURE: Right upper arm arteriovenous fistula over sew. INDICATIONS: The patient is a 66-year-old, who has had right upper arm AV fistula for many years, has now developed recurrent bleeding through mid arm portion of the venous fistula. He has had this bleed prior in the past and had been repaired. It is now bleeding and presents for fistula takedown. FINDINGS: The patient was taken to the operating room. General endotracheal anesthesia was induced. The patient's right arm was prepped and draped in normal sterile fashion. The case was begun by making a right-sided supra- antecubital skin incision using a #15 blade. Dissection was carried down through subcutaneous fat carefully with tenotomy scissors and electrocautery. We identified the arterial venous anastomosis, obtained proximal distal control on the brachial artery, and identified the aneurysmal dilated cephalic vein. Once obtaining vascular control with vascular clamps, I then divided the take-off of the venous portion of the AV fistula. I over sewed the arteriotomy portion of the fistula with running 6-0 Prolene suture. Prior to closing this, I did flush proximally and distally with heparinized saline up the brachial artery. Appeared to be good flow through the brachial artery after completion of the over-sew. I then removed a segment of the proximal venous portion of the fistula and then over sewed this with 3-0 Prolene suture in running and vertical mattress fashion. I then was able to open up the area of bleeding in the mid upper arm dissected at the skin free from the large venous opening and over sewed this with interrupted 3-0 Prolene suture. I then went more up the arm just in case there was some back pressure cephalic vein. This was up near the shoulder and made a transverse incision with a #15 blade. Identified the dilated venous tributary and used an 0 Vicryl suture and essentially just suture ligated the proximal aspect of this venous outflow. Closed the skin portion of this wound with interrupted 4-0 Vicryl subcuticular skin stitch. Wounds were cleaned, dried, and dressed. The patient tolerated the procedure without difficulty. About 100 mL blood loss. Meño Estevez MD/ trent JOB #: [id number] CC: Meño Graham MD, Attending Physician Meño Graham MD, Family Physician
--- NOTE | 2017-03-02 08:09 | DS ---
ADMIT: 12/11/2016 RM/LOC: 414 [facility] MR#: [id number] [address] [address] [place] [address] General Discharge Summary SEX: M AGE: 66 : 1950 ADMISSION DATE: 12/11/2016 DISCHARGE DATE: 12/24/2016 REASON FOR HOSPITALIZATION: End-stage renal disease, on hemodialysis with Gram-positive cocci bacteremia, status post course of vancomycin. HISTORY OF PRESENT ILLNESS: The patient is a 66-year-old male patient with end-stage renal disease, on hemodialysis, who presented with bacteremia and history of MRSA. He was generally lethargic. Dr. Graham performed his initial assessment, started him on antibiotic therapy, consulted Dr. Hall and had him undergo follow up blood cultures. We monitored his vancomycin levels and pharmacy assisted and followed with management. He did have a failed hemodialysis access, and we asked for surgical consult with Dr. sEtevez to assist with management and ligation of the dialysis access. Hemodialysis was performed under the direction of Dr. Hall. A temporary dialysis catheter was placed and he was scheduled for a fistula repair/ligation. This was performed on 12/14/2016. Follow up blood cultures revealed no growth and IV vancomycin was planned for a 10-day total course. His aspirin and Plavix were resumed. On 12/18/2016, he spiked another temperature and developed tenderness in his left lower quadrant. At that point, blood cultures were repeated and Merrem was added to his management. Procalcitonin was also performed. We asked Cardiology to see and evaluate for possible transesophageal echo. Cardiology did not feel that there was a need for transesophageal echo at this time. On 12/22/2016, he showed signs of improvement and he was scheduled for a tunneled dialysis catheter exchange. After lengthy hospital course, the patient's status stabilized. On 12/24/2016, we made arrangements for his dismissal back to the [facility] with; FINAL DIAGNOSES: 1. Sepsis. 2. Failed hemodialysis access. 3. Delirium. 4. End-stage renal disease. 5. Diabetes mellitus. 6. Diastolic heart failure. 7. Pneumonia. DISCHARGE INSTRUCTIONS: He is to follow up in the outpatient dialysis clinic with Dr. Hall and come back to see me in the office in 7 to 10 days. DISCHARGE MEDICATIONS: He was dismissed on: 1. Claritin. ADMIT: 12/11/2016 RM/LOC: 414 [facility] MR#: [id number] [address] [address] [place] [address] General Discharge Summary SEX: M AGE: 66 : 1950 2. Deltasone. 3. Metamucil. 4. ProAmatine. 5. Protonix. 6. Requip. 7. Senokot. 8. Sinemet. 9. Therapeutic multivitamin. 10.Dulera. 11.Spiriva. 12.NovoLog insulin. For specifics of dosing, please refer to his dismissal orders. David Gonsalez DO/ modl JOB #: [id number] CC: Meño Graham MD, Attending Physician Meño Graham MD, Family Physician
--- NOTE | 2017-03-14 11:01 | HP ---
ADMIT: 12/11/2016 RM/LOC: 414 [facility] MR#: [id number] [id number] [place], [place] [address] [place] [address] History and Physical SEX: M AGE: 66 : 1950 DATE OF SERVICE: CHIEF COMPLAINT: Lethargy. CLINICAL HISTORY: Ursula had a great deal of difficulty recently with dialysis, having a fistula that is in the midst of failing in spite of attempts at revision with angioplasty. He could not complete dialysis on Tuesday and subsequently on Tuesday did not attend and came in with mild obtundation, weak, and tired with some vague abdominal discomfort and nausea. He was placed on IV fluids and diagnostic studies were undertaken and revealed one of two blood culture is positive. He is admitted at this time and has previously been covered with vancomycin given in the emergency room. He is a chronic dialysis patient with prior hepatitis C related liver failure. He is status post treatment for his hepatitis C without signs or symptoms of active hepatitis C viremia, cryoglobulinemia, or any other direct hepatitis C complication. He has had long-standing history of kidney failure; AV fistula difficulties; diabetes;, coronary artery disease, status post PCI; recurrent ascites; depression. REVIEW OF SYSTEMS: Difficult to do, he does arouse. He is awake, answers questions, but just simply drifts off and closes his eyes. After restimulation, he answers one or two questions appropriately and then drifts off. He does not complain of any headache. He has not had any signs or symptoms to suggest meningitis, [employer] disease of other types and as far as we know, he denies any recent falls and injury, etc. PHYSICAL EXAMINATION: GENERAL: Reveals ashen individual, multiple tattoos. He is pleasant and cooperative, but just drowsy. He is oriented. HEAD AND NECK: Examination was otherwise unremarkable without nuchal rigidity or focal head and neck signs of infection, etc. LUNGS: Clear. HEART: Regular with a pulse rate at 72. I could not elicit necessarily an S3 gallop, however. ABDOMEN: Moderately distended and feels like ascites. I cannot feel or ballot any tenderness or mass of significance and I really cannot say that he has any splenomegaly, although I think prior studies have shown that. Blood cultures showed one of two positive. IMPRESSION: 1. Mild fluid overload and ascites secondary to inadequate dialysis. 2. Failed fistula. 3. Bacteremia, rule out MRSA. 4. Status post hepatitis C liver failure with treatment. 5. Chronic kidney failure. ADMIT: 12/11/2016 RM/LOC: 414 [facility] MR#: [id number] [facility] [address] [address] [place] [address] History and Physical SEX: M AGE: 66 : 1950 6. Coronary artery disease. 7. Declining functional status. Overall prognosis is quite poor and at age 66, he has deteriorated considerably over the last one year. His functional capacity at the current time is progressively diminished, and his overall prognosis is poor. We will make sure that he does not have an endovascular infection. Dr. Hall has been consulted. We will watch his blood sugars carefully. Dr. Gonsalez, his regular physician, who took care of him the rest of his hospital stay. Meño Graham MD/ trent JOB #: [id number] CC: Meño Graham MD, Attending Physician Meño Graham MD, Family Physician David Gonsalez, DO
[2017-05-03] MEDS ORDERED: BREO ELLIP1 PUFF/DOS IH (11:52)
[2017-05-03] MEDS ORDERED: VIBRAMYCIN-DPS100 M2 PO (11:53)
[2017-05-03] MEDS ORDERED: NIZORAL DPS30 GM TP (11:53)
[2017-05-03] MEDS ORDERED: ATIVAN-DPS0.5 MG PO (11:54)
[2017-05-03] MEDS ORDERED: NITROSTAT0.4 MG SL (11:54)
[2017-05-03] MEDS ORDERED: SERTRALINE HCL50 MG PO (11:56)
[2017-05-03] MEDS ORDERED: KLONOPIN DPS0.5 MG PO (11:57)
[2017-05-03] MEDS ORDERED: RENAGEL800 MG PO ×2 (11:57→13:21)
[2017-05-03] MEDS ORDERED: GLUTOSE 1537.5 GM PO (11:57)
[2017-05-03] MEDS ORDERED: GLUCAGON HCL1 MG IM (11:58)
[2017-05-03] MEDS ORDERED: EUCERIN CREME57 GM TP (13:14)
[2017-05-03] MEDS ORDERED: MEGACE DPS800 MG/20 PO (13:19)
[2017-05-03] MEDS ORDERED: MUCINEX600 MG PO (13:20)
[2017-05-03] MEDS ORDERED: ZOLOFT50 MG PO (13:22)
[2017-05-03] MEDS ORDERED: DULERA 100/58.8 GM IH (13:23)
[2017-05-03] MEDS ORDERED: NOVOLIN R,100 UNITS/ SQ (13:24)
[2017-05-03] MEDS ORDERED: FLU VACCINE IM (13:25)
[2017-05-14] MEDS ORDERED: TYLENOL DPS325 MG PO (18:19)
[2017-05-14] MEDS ORDERED: COLACE-DPS100 MG PO (18:20)
[2017-05-14] MEDS ORDERED: POLYETHYLENE GL17 GM PO (18:20)
[2017-05-14] MEDS ORDERED: NORCO 5-325 TA1 EACH PO (18:20)
[2017-05-14] MEDS ORDERED: OCEAN NASAL MIS45 ML NS (18:20)
[2017-05-14] MEDS ORDERED: MS CONTIN DPS15 MG PO ×2 (18:21→18:24)
[2017-05-14] MEDS ORDERED: ZOFRAN4 MG PO (18:21)
[2017-05-14] MEDS ORDERED: ATIVAN-DPS0.5 MG PO (18:21)
[2017-05-14] MEDS ORDERED: NITROSTAT0.4 MG SL (18:21)
[2017-05-14] MEDS ORDERED: PROTONIX40 MG PO (18:22)
[2017-05-14] MEDS ORDERED: THERA1 EACH PO (18:22)
[2017-05-14] MEDS ORDERED: METAMUCIL SF P3.4 GM PO (18:22)
[2017-05-14] MEDS ORDERED: CLARITIN DPS10 MG PO (18:22)
[2017-05-14] MEDS ORDERED: KLONOPIN DPS0.5 MG PO ×3 (18:22→18:24)
[2017-05-14] MEDS ORDERED: CARBIDOPA-LEVO1 EAC6 PO ×2 (18:23→18:24)
[2017-05-14] MEDS ORDERED: SENOKOT DPS8.6 MG PO (18:23)
[2017-05-14] MEDS ORDERED: REQUIP DPS0.5 MG PO (18:23)
[2017-05-14] MEDS ORDERED: ZOLOFT50 MG PO (18:23)
[2017-05-14] MEDS ORDERED: RENVELA0.8 GM PO ×2 (18:25)
[2017-05-14] MEDS ORDERED: BREO ELLIP1 PUFF/DOS IH (18:25)
[2017-05-14] MEDS ORDERED: EUCERIN CREME57 GM TP (18:25)
[2017-05-14] MEDS ORDERED: NIZORAL DPS30 GM TP (18:26)
[2017-05-14] MEDS ORDERED: DUONEB DPS3 ML IH (18:26)
== END 2016-12-24 16:30 | DRG 853 ==
LOC: ER 12:22 → 5MS 14:22 → 3ICU 14:22 → 4PCU 12-22 02:52
PROVIDERS: ADMIT Internal Medicine
PROC: B518ZZA Fluoroscopy of Superior Vena Cava, Guidance (ICD-10-PCS; 2016-12-13)
PROC: 5A1D60Z (ICD-10-PCS; 2016-12-13)
PROC: B543ZZA Ultrasonography of Right Jugular Veins, Guidance (ICD-10-PCS; 2016-12-13)
PROC: 02HV33Z Insertion of Infusion Device into Superior Vena Cava, Percutaneous Approach (ICD-10-PCS; 2016-12-13)
PROC: 03WY07Z Revision of Autologous Tissue Substitute in Upper Artery, Open Approach (ICD-10-PCS; principal; 2016-12-14)
PROC: 02PY33Z Removal of Infusion Device from Great Vessel, Percutaneous Approach (ICD-10-PCS; 2016-12-23)
PROC: B518ZZZ Fluoroscopy of Superior Vena Cava (ICD-10-PCS; 2016-12-23)
PROC: 02H633Z Insertion of Infusion Device into Right Atrium, Percutaneous Approach (ICD-10-PCS; 2016-12-23)
PROC: 0JH63XZ Insertion of Tunneled Vascular Access Device into Chest Subcutaneous Tissue and Fascia, Percutaneous Approach (ICD-10-PCS; 2016-12-23)
DX: A41.02 Sepsis due to Methicillin resistant Staphylococcus aureus (principal); J18.9 Pneumonia, unspecified organism; I13.2 Hypertensive heart and chronic kidney disease with heart failure and with stage 5 chronic kidney disease, or end stage renal disease; D47.Z1 Post-transplant lymphoproliferative disorder (PTLD); T86.11 Kidney transplant rejection; N18.6 End stage renal disease; C85.90 Non-Hodgkin lymphoma, unspecified, unspecified site; E44.0 Moderate protein-calorie malnutrition; T82.49XA Other complication of vascular dialysis catheter, initial encounter; T82.858A Stenosis of other vascular prosthetic devices, implants and grafts, initial encounter; I50.32 Chronic diastolic (congestive) heart failure; J44.0 Chronic obstructive pulmonary disease with (acute) lower respiratory infection; E11.649 Type 2 diabetes mellitus with hypoglycemia without coma; Z99.2 Dependence on renal dialysis; K57.90 Diverticulosis of intestine, part unspecified, without perforation or abscess without bleeding; E11.22 Type 2 diabetes mellitus with diabetic chronic kidney disease; E11.51 Type 2 diabetes mellitus with diabetic peripheral angiopathy without gangrene; E11.43 Type 2 diabetes mellitus with diabetic autonomic (poly)neuropathy; I27.2 Other secondary pulmonary hypertension; K31.84 Gastroparesis; E03.9 Hypothyroidism, unspecified; M10.9 Gout, unspecified; M19.90 Unspecified osteoarthritis, unspecified site; N40.0 Benign prostatic hyperplasia without lower urinary tract symptoms; D63.1 Anemia in chronic kidney disease; F41.9 Anxiety disorder, unspecified; E78.5 Hyperlipidemia, unspecified; F32.9 Major depressive disorder, single episode, unspecified; K21.9 Gastro-esophageal reflux disease without esophagitis; I25.10 Atherosclerotic heart disease of native coronary artery without angina pectoris; I25.2 Old myocardial infarction; Z86.19 Personal history of other infectious and parasitic diseases; Z87.442 Personal history of urinary calculi; Z87.11 Personal history of peptic ulcer disease; Z79.4 Long term (current) use of insulin; Z95.5 Presence of coronary angioplasty implant and graft

== ENCOUNTER 2017-01-16 21:09 | Inpatient (IN) | payer MEDICARE, MEDICAID ==
[~2017-01-16] VITALS: Ht 175.3 cm; Wt 64.3 kg
--- NOTE | ~2017-01-16 | ECH ---
Transesophageal Echocardiography Report (ERICK) Demographics Patient Name URSULA VILLAGOMEZ Date of Study 01/20/2017 Patient Number [id number] Visit Number [id number] Date of 1950 Room Number 408 Accession Number [id number] Gender Male Age 66 year(s) Referring Sunshine Nicolas MD Airborne Sensor Specialist Christina Sung Physician Ray Fagan RDCS, MD Physician Daisy Mejia MD Windows Systems Engineer Physician Ruben Supervising Ordering Physician Ray Fagan MD, MD/MLP Nurse Stress Tax Attorney Conclusions Contractility Score Summary Global Left Ventricular Hypokinesis was noted. Summary Informed consent obtained. Transesophageal echocardiogram was done under moderate sedation . The estimated left ventricular ejection fraction is 30-35%. Mildly dilated left ventricle. Global hypokinesis. There is no thrombus in the left atrial appendage. Bubble study was done, there is no evidence for a PFO or ASD. Mild mitral regurgitation by color Doppler. No vegetations identified. Recommendation The patient was given the results of the exam during their hospital stay. Procedure Type of Study ERICK procedure:ERICK SF. Procedure Date Date: 01/20/2017 Start: 02:04 Technical Quality: Good visualization Indications:Coronary artery disease, Hypertension and Fever. Additional Indications:History of MRSA bacteremia,Negative blood cultures at present Appropriate Use Criteria: 9 Height: 69 inches Weight: 141 pounds BSA: 1.78 m Rhythm: Within normal limits HR: 74 bpm BP: 116/66 mmHg O2 Saturation: 97 % ERICK Performed By: Ruben Mejia MD Type of Anesthesia: Moderate sedation Findings Left Ventricle Mildly dilated left ventricle. Global hypokinesis. Left Atrium There is no thrombus in the left atrial appendage. Informed consent was obtained, bubble study was done, there is no evidence for a PFO or ASD. Right Atrium Catheter noted in right atrium. Mitral Valve Normal mitral valve structure and function. Mild mitral regurgitation by color Doppler. Aortic Valve Normal aortic valve structure and function. Tricuspid Valve Normal tricuspid valve structure and function. Pulmonic Valve The pulmonic valve is not well visualized. Miscellaneous Mild atheroma noted in the aorta. Contractility Score LV regional wall motion:(0-Non visualized 1-Normal 2-Hypokinesis 3-Akinesis 4-Dyskinesis 5-Aneurysm) Signature
--- NOTE | 2017-01-17 02:57 | ER ---
ADMIT: 01/16/2017 RM/LOC: 307 [facility] MR#: [id number] [address] [address] [place] [address] Emergency Room Report SEX: M AGE: 66 : 1950 DATE: 01/16/2017 CHIEF COMPLAINT: Delirium. HISTORY OF PRESENT ILLNESS: The patient is a 66-year-old male resident of [facility], transferred tonight with fever, delirium, agitation. Was hospitalized December 11 through December 24 for MRSA sepsis, pneumonia. Had his right arm AV fistula tied off during this hospitalization. Nursing report from [facility] states he became increasingly febrile, delirious, and somewhat agitated. No recent falls or change in his cough. PAST MEDICAL HISTORY: ALLERGIES: CIPRO, CODEINE, COMPAZINE, LASIX, IODINE. MEDICATIONS: Please see detention MAR. 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 OPERATIONS: PCI stent x4, cholecystectomy, recent right AV fistula, outflow obstruction status post ligation recently, PCI stent, superficial femoral artery, Groshong catheter, failed cadaver kidney transplant. SOCIAL HISTORY: Quit smoking in 2014. No recent illicit drugs or alcohol. FAMILY HISTORY: Negative for chronic renal failure. However, his does need hemodialysis. REVIEW OF SYSTEMS: A 12-point review of systems is negative for all other systems, illnesses, or operations except as outlined above. PHYSICAL EXAMINATION: VITAL SIGNS: Temp 102.4 on admission, 99 at transfer, pulse 92, respirations 16, BP 105/64, SaO2 of 100% on 4 L. GENERAL: Delirious, stuporous, but oriented, chronically ill-appearing, without diaphoresis. HEENT: Normocephalic. No evidence of epistaxis, rhinorrhea, or otorrhea. NECK: Supple without lymphadenopathy or thyromegaly. CHEST: Breath sounds equal, diminished with inspiratory crackles, rhonchi noted throughout. Groshong catheter, right anterior chest wall. HEART: Regular rate and rhythm without murmur or gallop. 1+ pedal ankle edema, unchanged from baseline. ABDOMEN: Soft, nontender, and nondistended without mass or megaly. Ascites noted. ADMIT: 01/16/2017 RM/LOC: 307 [facility] MR#: [id number] [address] [address] [place] [address] Emergency Room Report SEX: M AGE: 66 : 1950 EXTREMITIES: Right AV fistula draining serosanguineous fluid. NEURO: EOMI. PERRLA. No evidence of drift, dysarthria, or ataxia. Gait not assessed. Mental status; anxious, stuporous. MEDICAL DECISION MAKING: The patient is chronically ill-appearing male with recent sepsis. Chest x-ray confirms chronic pulmonary edema versus infiltrate. CT chest, likewise, confirms bilateral pleural effusion and airspace disease consistent with consolidation. CT head unremarkable. Normal WBC. Hemoglobin 9.7, platelet 134, lactic 1.5, CRP 3.02, troponin 0.79, creatinine 4.5 with normal electrolytes, magnesium 1.6, BN peptide greater than 175,000, INR 1.12, procalcitonin 0.94. EKG shows sinus rhythm with repolarization changes, unchanged from previous. The patient was covered with Tylenol 1 g on admission with temperature defervescence with vancomycin and Zosyn. Discussed case with Dr. Gonsalez, who agreed and gave orders to nursing staff. Due to the patient's presentation, findings, and intervention, 60 minutes of critical care is warranted. DIAGNOSES: 1. Healthcare-acquired pneumonia associated with sepsis syndrome. 2. Chronic renal failure on hemodialysis. 3. Recent AV fistula ligation due to outflow tract obstruction. RECOMMENDATION: Admit inpatient PCU for Dr. Gonsalez. CODE STATUS: The patient is a full code. Ulysses Quiroz MD/ trent JOB #: [id number] CC: David Gonsalez DO, Attending Physician David Gonsalez DO, Family Physician David Gonsalez DO
[2017-01-27] MEDS ORDERED: CLARITIN DPS10 MG PO (06:31)
[2017-01-27] MEDS ORDERED: DELTASONE DPS10 MG PO (06:31)
[2017-01-27] MEDS ORDERED: METAMUCIL SF P3.4 GM PO (06:32)
[2017-01-27] MEDS ORDERED: KLONOPIN DPS0.5 MG PO ×2 (06:32)
[2017-01-27] MEDS ORDERED: MIRALAX PACKET17 GM PO (06:32)
[2017-01-27] MEDS ORDERED: PROTONIX40 MG PO (06:33)
[2017-01-27] MEDS ORDERED: MS CONTIN DPS15 MG PO ×2 (06:33)
[2017-01-27] MEDS ORDERED: PRO-AMATINE2.5 MG PO (06:33)
[2017-01-27] MEDS ORDERED: REQUIP DPS0.5 MG PO (06:34)
[2017-01-27] MEDS ORDERED: SENOKOT DPS8.6 MG PO (06:34)
[2017-01-27] MEDS ORDERED: SINEMET 25-1001 EACH PO (06:34)
[2017-01-27] MEDS ORDERED: DUONEB DPS3 ML IH (06:35)
[2017-01-27] MEDS ORDERED: SINEMET 25/1001 TAB PO (06:35)
[2017-01-27] MEDS ORDERED: NORMAL SALINE FL5 ML IV (06:35)
[2017-01-27] MEDS ORDERED: THERAPEUTIC MUL1 TAB PO (06:35)
[2017-01-27] MEDS ORDERED: HYDROCODON-ACE1 EAC4 PO (06:36)
[2017-01-27] MEDS ORDERED: ZOSYN 3.3753.375 GM IV (06:36)
[2017-01-27] MEDS ORDERED: COLACE-DPS100 MG PO (06:36)
[2017-01-27] MEDS ORDERED: OCEAN NASAL MIS45 ML NS (06:37)
[2017-01-27] MEDS ORDERED: TYLENOL DPS325 MG PO (06:37)
[2017-01-27] MEDS ORDERED: ZOFRAN4 MG PO (06:37)
--- NOTE | 2017-02-02 09:47 | CO ---
ADMIT: 01/16/2017 RM/LOC: 408 [facility] MR#: [id number] [address] [address] [place] [address] Consultation SEX: M AGE: 66 : 1950 DATE OF CONSULTATION: 01/19/2017 ATTENDING PHYSICIAN: David Gonsalez CONSULTING PHYSICIAN: Lou Bell MD REASON FOR CONSULTATION: Fever. Thank you, Dr. Gonsalez, for the consult and involving me in this patient's care. HISTORY OF PRESENT ILLNESS: Mr. Villagomez is a 66-year-old man with history of end-stage renal disease, on hemodialysis, who is currently residing at [facility]. He presented to the ER with fever and mental status changes and delirium. He was diagnosed with pneumonia and started on sepsis protocol. He was recently discharged from the hospital in the end of November where he had MRSA bacteremia and was treated with two weeks of IV vancomycin per the notes. His blood cultures in this admission have been negative so far. He was started on Zosyn and vancomycin, and he has remained afebrile since last 24 hours. At present, he denies any complaints. During his last admission, he also had bleeding through his right AVM fistula, which was ligated and currently he is getting dialyzed from tunneled dialysis catheter. PAST MEDICAL HISTORY: 1. End-stage renal disease, on hemodialysis. 2. History of prior renal transplant. 3. Hepatitis C, treated. 4. Lymphoproliferative disorder. 5. Diabetes mellitus. 6. Ascites. 7. Chronic obstructive pulmonary disease. 8. Restless legs syndrome. 9. Vasculitis. 10.Dermatitis. 11.Coronary artery disease, status post PCI. SOCIAL HISTORY: He lives at home. He denies any smoking, alcohol, or recreational drug use. FAMILY HISTORY: Significant for CVA in his mother and cancer in his father. ALLERGIES: TO PHENOTHIAZINE, PROCHLORPERAZINE, CODEINE, LASIX, AND CIPROFLOXACIN. MEDICATIONS: Current medications were reviewed. He is currently on: 1. Zosyn and vancomycin for antibiotics. REVIEW OF SYSTEMS: A 10-point review of systems negative except as mentioned in HPI. ADMIT: 01/16/2017 RM/LOC: 408 [facility] MR#: [id number] [address] [address] [place] [address] Consultation SEX: M AGE: 66 : 1950 PHYSICAL EXAMINATION: VITAL SIGNS: Current temperature 97.3, T-max was 103.2, heart rate 77, respirations 18, blood pressure 105/59, and 98% on 2 L. GENERAL: No acute distress. HEENT: Head is normocephalic and atraumatic. Extraocular movements intact. CHEST: Decreased breath sounds at bases. CARDIOVASCULAR: S1 and S2 heard. No murmurs, rubs, or gallops. ABDOMEN: Soft, nontender, and nondistended. Active bowel sounds. PSYCH: Normal affect. Memory intact. SKIN: No rash noted on exposed skin. LYMPH: No palpable anterior/posterior cervical or supraclavicular lymphadenopathy. DATA REVIEW: CBC today shows white count of 5.5, hemoglobin 10.2, and platelets of 98. BMP shows creatinine of 2.9. CT chest showed inflammatory nodules and consolidation at the lung bases with bilateral pleural effusion. ASSESSMENT AND PLAN: 1. Healthcare-associated pneumonia. At this time, continue vancomycin and Zosyn. I will check sputum culture and sensitivity if he can give a sample. 2. History of Methicillin-resistant Staphylococcus aureus bacteremia. I think he was inadequately treated at that time. I will recommend doing a transesophageal echo to rule out any evidence of endocarditis. His repeat blood cultures have been negative so far. 3. End-stage renal disease, on hemodialysis. 4. Hepatitis C, treated. 5. History of renal transplant. Thank you for the consult. I will continue to follow the patient. Lou Bell MD/ trent JOB #: [id number] CC: David Gonsalez, Attending Physician David Gonsalez, Family Physician
--- NOTE | 2017-02-07 08:35 | HP ---
ADMIT: 01/16/2017 RM/LOC: 307 [facility] MR#: [id number] 2620 [facility] [address] [place] [address] V[place]AGOME[place] [address] History and Physical SEX: M AGE: 66 : 1950 DATE OF SERVICE: 01/17/2017 REASON FOR HOSPITALIZATION: Pneumonia and fever. HISTORY: A 66-year-old male patient whom I was called from the [place] [facility]. When they reported that his blood pressure is running a little low, he is having fever and mental status changes delirium and agitation. We had him sent to the emergency room where he was evaluated and promptly diagnosed with early sepsis syndrome and pneumonia. He does have a medical history of end- stage renal disease, on hemodialysis every Tuesday, Tuesday, and Tuesday. He has had prior renal transplant, history of hep C, lymphoproliferative disorder, diabetes mellitus, ascites, COPD, vasculitic dermatitis, restless legs syndrome, coronary artery disease, PCI and his last hospitalization revolved around treatment for pneumonia, sepsis, and fistula malfunction, which was ligated by Dr. Estevez. SOCIAL HISTORY: Lives at [facility]. He is , does not smoke or drink. FAMILY HISTORY: Noncontributory. MEDICATIONS: 1. Sinemet. 2. Minocycline. 3. Clonazepam. 4. Morphine ER. 5. Protonix. 6. Metamucil. 7. Senna. 8. Loratadine. 9. Prednisone. 10.Multivitamin. 11.Midodrine. 12.Ropinirole. 13.He also has p.r.n. Mylanta, Tylenol, hydrocodone, Zofran, and [place] nasal spray. For specifics of dosing, please refer to his admission orders. REVIEW OF SYSTEMS: He at this time is fairly alert, and he has a generally good recall of the events surrounding his transfer and admission. He currently denies any shortness of breath, cough, or sputum production. He states that he has not had an appetite, but has not been passing any blood. PHYSICAL EXAMINATION: GENERAL: He is thin and frail. He is currently alert and cooperative. VITAL SIGNS: His blood pressure is 106/68. He has a temperature current of 100.4, heart rate is 75. HEART: Regular. LUNGS: Clear. ADMIT: 01/16/2017 RM/LOC: 307 [facility] MR#: [id number] [address] [address] [place] [address] History and Physical SEX: M AGE: 66 : 1950 ABDOMEN: Round, soft, and nontender. EXTREMITIES: He has 1+ edema in his legs and chronic stasis changes of the lower extremities. LABORATORY DATA: His white count is 5.9, hemoglobin 9.7. BUN 28, creatinine 4.5, blood cultures are pending and chest x-ray reveals pneumonia, edema. IMPRESSION: Pneumonia sepsis. PLAN: Admit, IV antibiotic therapy. Supportive cares. Consult Dr. Hall for dialysis and asked Dr. Estevez to review his prior surgical site at the fistula. David Gonsalez DO/ modl JOB #: [id number] CC: David Gonsalez, Attending Physician David Gonsalez, Family Physician
--- NOTE | 2017-03-02 08:09 | DS ---
ADMIT: 01/16/2017 RM/LOC: 408 [facility] MR#: [id number] [id number] [place], [place] [address] [place] [address] General Discharge Summary SEX: M AGE: 66 : 1950 ADMISSION DATE: 01/16/2017 DISCHARGE DATE: 01/25/2017 REASON FOR HOSPITALIZATION: Pneumonia, fever. HISTORY OF PRESENT ILLNESS: This is a 66-year-old male patient, who was at the correction, and I was called to report his blood pressure was running low and he was having fever and mental status changes with delirium and agitation. He was sent to the emergency room and evaluated and we found him to have pneumonia/sepsis and mental status changes. He has end-stage renal disease. His hospital course consisted of admission to the hospital, cultures evaluation, broad-spectrum antibiotic therapy, consultation with Dr. Hall for ongoing dialysis. We provided him supportive cares, and Dr. Estevez was consulted. The patient recently had a fistula ligation and still had some scabbing and visible sutures remaining at the incisional site. Dr. Estevez was consulted to manage this. He was felt to have a health-care acquired pneumonia. By 01/18/2017, he was still struggling, his CAT scan showed consolidation, and I asked Dr. Bell to assist with his antibiotic management and management of sepsis, fever which was recurrent/persistent in nature. We also asked Speech Therapy to evaluate to consider the aspiration as a possible contributor. They asked for modified barium swallow, which was performed. Dr. Bell also felt that he needed a transesophageal echocardiogram and ordered sputum culture and sensitivity. She recommended a total 10-day course of Zosyn and vancomycin. His ERICK did not show anything suggestive of cardiac source. He did have an ejection fraction of 30% to 35%, but no signs of vegetations. The modified barium swallow was performed, and the Speech recommended continued regular diet and thin liquids with double swallow technique and to slow his pace with eating and remain at 90 degrees for half an hour to 45 minutes after meals. On 01/24/2017, he was evaluated, he was doing well, no longer febrile and tolerating his antibiotics, he was on day #7 of #10 of his IV antibiotic regimen, which we felt could be performed at the correction. We began making arrangements for dismissal to correction and made arrangements for PICC line placement. FINAL DIAGNOSES: On 01/25/2017, he was dismissed with final diagnoses of; 1. Health care-acquired pneumonia. 2. End-stage renal disease. 3. Hypertension. 4. Chronic systolic heart failure. 5. Sepsis syndrome. David Gonsalez DO/ trent JOB #: [id number] CC: David Gonsalez DO, Attending Physician David Gonsalez DO, Family Physician
[2017-05-03] MEDS ORDERED: BREO ELLIP1 PUFF/DOS IH (11:52)
[2017-05-03] MEDS ORDERED: NIZORAL DPS30 GM TP (11:53)
[2017-05-03] MEDS ORDERED: VIBRAMYCIN-DPS100 M2 PO (11:53)
[2017-05-03] MEDS ORDERED: NITROSTAT0.4 MG SL (11:54)
[2017-05-03] MEDS ORDERED: ATIVAN-DPS0.5 MG PO (11:54)
[2017-05-03] MEDS ORDERED: SERTRALINE HCL50 MG PO (11:56)
[2017-05-03] MEDS ORDERED: RENAGEL800 MG PO ×2 (11:57→13:21)
[2017-05-03] MEDS ORDERED: GLUTOSE 1537.5 GM PO (11:57)
[2017-05-03] MEDS ORDERED: KLONOPIN DPS0.5 MG PO (11:57)
[2017-05-03] MEDS ORDERED: GLUCAGON HCL1 MG IM (11:58)
[2017-05-03] MEDS ORDERED: EUCERIN CREME57 GM TP (13:14)
[2017-05-03] MEDS ORDERED: MEGACE DPS800 MG/20 PO (13:19)
[2017-05-03] MEDS ORDERED: MUCINEX600 MG PO (13:20)
[2017-05-03] MEDS ORDERED: ZOLOFT50 MG PO (13:22)
[2017-05-03] MEDS ORDERED: DULERA 100/58.8 GM IH (13:23)
[2017-05-03] MEDS ORDERED: NOVOLIN R,100 UNITS/ SQ (13:24)
[2017-05-03] MEDS ORDERED: FLU VACCINE IM (13:25)
[2017-05-14] MEDS ORDERED: TYLENOL DPS325 MG PO (18:19)
[2017-05-14] MEDS ORDERED: NORCO 5-325 TA1 EACH PO (18:20)
[2017-05-14] MEDS ORDERED: POLYETHYLENE GL17 GM PO (18:20)
[2017-05-14] MEDS ORDERED: COLACE-DPS100 MG PO (18:20)
[2017-05-14] MEDS ORDERED: OCEAN NASAL MIS45 ML NS (18:20)
[2017-05-14] MEDS ORDERED: MS CONTIN DPS15 MG PO ×2 (18:21→18:24)
[2017-05-14] MEDS ORDERED: ZOFRAN4 MG PO (18:21)
[2017-05-14] MEDS ORDERED: NITROSTAT0.4 MG SL (18:21)
[2017-05-14] MEDS ORDERED: ATIVAN-DPS0.5 MG PO (18:21)
[2017-05-14] MEDS ORDERED: CLARITIN DPS10 MG PO (18:22)
[2017-05-14] MEDS ORDERED: THERA1 EACH PO (18:22)
[2017-05-14] MEDS ORDERED: PROTONIX40 MG PO (18:22)
[2017-05-14] MEDS ORDERED: KLONOPIN DPS0.5 MG PO ×3 (18:22→18:24)
[2017-05-14] MEDS ORDERED: METAMUCIL SF P3.4 GM PO (18:22)
[2017-05-14] MEDS ORDERED: REQUIP DPS0.5 MG PO (18:23)
[2017-05-14] MEDS ORDERED: CARBIDOPA-LEVO1 EAC6 PO ×2 (18:23→18:24)
[2017-05-14] MEDS ORDERED: SENOKOT DPS8.6 MG PO (18:23)
[2017-05-14] MEDS ORDERED: ZOLOFT50 MG PO (18:23)
[2017-05-14] MEDS ORDERED: EUCERIN CREME57 GM TP (18:25)
[2017-05-14] MEDS ORDERED: RENVELA0.8 GM PO ×2 (18:25)
[2017-05-14] MEDS ORDERED: BREO ELLIP1 PUFF/DOS IH (18:25)
[2017-05-14] MEDS ORDERED: DUONEB DPS3 ML IH (18:26)
[2017-05-14] MEDS ORDERED: NIZORAL DPS30 GM TP (18:26)
== END 2017-01-25 11:00 | DRG 871 ==
LOC: ER 21:09 → 3ICU 22:56 → 4PCU 22:56
PROVIDERS: ADMIT Internal Medicine
PROC: 5A1D60Z (ICD-10-PCS; principal; 2017-01-17)
PROC: B24BZZ4 Ultrasonography of Heart with Aorta, Transesophageal (ICD-10-PCS; 2017-01-20)
DX: A41.9 Sepsis, unspecified organism (principal); J15.6 Pneumonia due to other Gram-negative bacteria; I13.2 Hypertensive heart and chronic kidney disease with heart failure and with stage 5 chronic kidney disease, or end stage renal disease; T86.11 Kidney transplant rejection; E46 Unspecified protein-calorie malnutrition; N18.6 End stage renal disease; F05 Delirium due to known physiological condition; I50.22 Chronic systolic (congestive) heart failure; R18.8 Other ascites; J44.0 Chronic obstructive pulmonary disease with (acute) lower respiratory infection; I25.10 Atherosclerotic heart disease of native coronary artery without angina pectoris; Z99.2 Dependence on renal dialysis; I25.2 Old myocardial infarction; D63.1 Anemia in chronic kidney disease; K21.9 Gastro-esophageal reflux disease without esophagitis; E11.51 Type 2 diabetes mellitus with diabetic peripheral angiopathy without gangrene; J30.9 Allergic rhinitis, unspecified; G25.81 Restless legs syndrome; F41.9 Anxiety disorder, unspecified; N40.0 Benign prostatic hyperplasia without lower urinary tract symptoms; N25.0 Renal osteodystrophy; F32.9 Major depressive disorder, single episode, unspecified; Z86.19 Personal history of other infectious and parasitic diseases; Z79.4 Long term (current) use of insulin; Z86.14 Personal history of Methicillin resistant Staphylococcus aureus infection; Z95.5 Presence of coronary angioplasty implant and graft; Z87.891 Personal history of nicotine dependence